=== PATIENT | male | born 1950 | race Caucasian/White ===

== ENCOUNTER 2017-09-30 02:40 | Emergency (ER) | payer MEDICARE, OTHER, SELFPAY ==
[2017-09-30 02:42] VITALS: BP 135/67; PULSE 80; RESP 18; TEMP 36.3; O2SAT 94; BMI 58.3
--- NOTE | 2017-09-30 03:15 | RAD_ITS ---
STUDY: X-RAY CHEST REASON FOR EXAM: Male, 67 years old. Cough. TECHNIQUE: Single AP portable view of the chest. COMPARISON: 08/25/2017. FINDINGS: There is a tracheostomy tube. The lungs are mildly underexpanded. There is no demonstrated pulmonary infiltrate. There is no demonstrated pleural abnormality. There is moderate cardiac enlargement. Normal mediastinum and [place]. There is prominence of the pulmonary hilar arteries and peripheral pulmonary arteries, consistent with congestive heart failure (CHF). Normal visualized aortic arch and descending thoracic aorta. Normal visualized thoracic spine. Normal visualized ribs, clavicles, and shoulders. There is no demonstrated abnormality of the visualized soft tissue structures of the upper abdomen. RAD/Chest 1 View IMPRESSION: Cardiomegaly with mild CHF. Tracheostomy tube. Electronically Signed: Tao Hurt MD at 4:00 EST , Service support ,
--- NOTE | 2017-09-30 03:17 | ED.VISSUMM ---
- ER Visit Summary Date of Service: 09/30/17 Chief Complaint: trach displaced History of Present Illness: The patient is a 67 M presenting from sn[facility] for trach problems. Patient states he had a coughing episode this evening and his trach was displaced. It did not completely come out but he feels that something is wrong and it is not in the right place. The snf staff tried to push it back in and they were unable. Per snf staff he has been playing with his trach. Patient denies this. He states he has had a cough productive of sputum. He had a chest x-ray performed today and was unable to receive the results. He denies fever, shortness of breath, chest pain. On August 22, 2017 patient had a emergent trach placed after airway team was called due respiratory failure secondary to intentional ativan overdose. Physical Examination: Vitals are stable. Patient is afebrile. Alert no acute distress. HEENT exam is unremarkable. Neck is supple. Trach displaced 4 cm Lungs are clear and equal bilaterally. Heart is regular rate and rhythm. Abdomen is soft nontender nondistended. Extremities are unremarkable. Skin is warm and dry. No focal neurologic deficit. Remainder of exam is unremarkable. Emergency Department Course and Treatment: Along with respiratory therapist I tried to advance his trach without success. Chest x-ray was obtained and shows no acute process, mild CHF. ENT was paged. Patient was observed for several hours awaiting callback. He had no desaturations. He has not required oxygen. He states he has been off oxygen for several days. He wears a CPAP at night for sleep apnea. Discussed with Dr. Barton who recommends removing the trach and placing an occlusive dressing. Patient tolerated this well. He will be discharged back to the snf. Disposition: Discharge home Impression: Tracheostomy tube displacement This note was generated with [employer] dictation software. It may contain incorrect words, spelling, and punctuation that were not noted in review of the chart prior to signing ED Disposition - Plan for ED Patient: Chief Complaint: Other, Pain/Inj Referrals: Jason Moffett DO [Primary Care Provider] -
--- NOTE | 2017-09-30 03:21 | ED.DCSUM_ITS ---
- ER Visit Summary Date of Service: 09/30/17 Chief Complaint: trach displaced History of Present Illness: The patient is a 67 M presenting from assisted for trach problems. Patient states he had a coughing episode this evening and his trach was displaced. It did not completely come out but he feels that something is wrong and it is not in the right place. The assisted staff tried to push it back in and they were unable. Per assisted staff he has been playing with his trach. Patient denies this. He states he has had a cough productive of sputum. He had a chest x-ray performed today and was unable to receive the results. He denies fever, shortness of breath, chest pain. On August 22, 2017 patient had a emergent trach placed after airway team was called due respiratory failure secondary to intentional ativan overdose. Physical Examination: Vitals are stable. Patient is afebrile. Alert no acute distress. HEENT exam is unremarkable. Neck is supple. Trach displaced 4 cm Lungs are clear and equal bilaterally. Heart is regular rate and rhythm. Abdomen is soft nontender nondistended. Extremities are unremarkable. Skin is warm and dry. No focal neurologic deficit. Remainder of exam is unremarkable. Emergency Department Course and Treatment: Along with respiratory therapist I tried to advance his trach without success. Chest x-ray was obtained and shows no acute process, mild CHF. ENT was paged. Patient was observed for several hours awaiting callback. He had no desaturations. He has not required oxygen. He states he has been off oxygen for several days. He wears a CPAP at night for sleep apnea. Discussed with Dr. Barton who recommends removing the trach and placing an occlusive dressing. Patient tolerated this well. He will be discharged back to the assisted. Disposition: Discharge home Impression: Tracheostomy tube displacement This note was generated with [employer] dictation software. It may contain incorrect words, spelling, and punctuation that were not noted in review of the chart prior to signing ED Disposition - Plan for ED Patient: Chief Complaint: Other, Pain/Inj Referrals: Jason Moffett DO [Primary Care Provider] -
[2017-09-30 06:54] VITALS: BP 163/63; PULSE 85; O2SAT 92
--- NOTE | 2017-09-30 09:16 | ED.DEP ---
ED Disposition - Plan for ED Patient: Chief Complaint: Other, Pain/Inj Instructions: Tracheostomy Care Referrals: Jason Moffett DO [Primary Care Provider] -
[2017-09-30 09:40] VITALS: BP 133/77; PULSE 89; RESP 26; O2SAT 94
[2017-09-30 11:19] VITALS: BP 142/78; PULSE 94; RESP 22; O2SAT 95
== END 2017-09-30 11:20 | disposition home or self-care (01) ==
PROVIDERS: Emergency Provider Emergency Medicine; Family Provider Student in an Organized Health Care Education/Training Program; PCP Student in an Organized Health Care Education/Training Program
DX: J95.03 Malfunction of tracheostomy stoma (principal); R05 Cough; I10 Essential (primary) hypertension; E78.00 Pure hypercholesterolemia, unspecified; G47.33 Obstructive sleep apnea (adult) (pediatric); F32.9 Major depressive disorder, single episode, unspecified; F41.9 Anxiety disorder, unspecified
CPT/HCPCS: 71045; 99283

== ENCOUNTER 2017-10-06 08:46 | Emergency (ER) | payer MEDICARE, OTHER, SELFPAY ==
[2017-10-06 08:47] VITALS: BP 150/80; PULSE 79; RESP 17; TEMP 36.8; O2SAT 97; BMI 56.1
--- NOTE | 2017-10-06 08:58 | CT_ITS ---
STUDY: CT ABDOMEN AND PELVIS WITHOUT CONTRAST REASON FOR EXAM: Male, 67 years old. Abdominal pain RADIATION DOSAGE (If Supplied By Facility): CTDIvol = ( 34.45 ) mGy, DLP = ( 2014.33 ) mGycm TECHNIQUE: Transaxial images were obtained from the dome of the diaphragm to the symphysis pubis without oral contrast, and without intravenous contrast. Sagittal and coronal images were reconstructed. Individualized dose optimization techniques were used for this CT. COMPARISON: None. FINDINGS: Limited by obesity. The visualized lung bases are unremarkable. Mild cardiomegaly. There is hepatomegaly with diffuse hepatic enlargement. Normal gallbladder and extrahepatic biliary system. Normal spleen. There is diffuse atrophy of the pancreas. Normal bilateral adrenal glands. Nonobstructing right lower pole nephrolith measuring 1.0 cm. Exophytic mildly hyperdense right renal cysts. Normal left kidney. There is a small hiatal hernia. The visualized portions of the small bowel are grossly within normal limits. The visualized portions of the colon are grossly within normal limits. There is slight dilation of the appendix with a distal appendicolith and some periappendiceal fat stranding. Acute appendicitis cannot be excluded. The appendix measures roughly 11 mm in diameter. Normal abdominal aorta. Normal inferior vena cava. Normal retroperitoneum. Butst catheter within the bladder. Normal abdominal wall. There are diffuse degenerative changes of the visualized lumbar spine. CT/Abdomen/Pelvis without Cont IMPRESSION: Questionable early appendicitis with slight dilation of the appendix and fluid filled appendix and some distal periappendiceal fat stranding. There is an appendicolith in the distal appendix. Nonobstructing right nephrolith. Electronically Signed: Babak Trejo DO at 10:30 EST Tel , Service support ,
--- NOTE | 2017-10-06 11:03 | ED.VISSUMM ---
- ER Visit Summary Date of Service: 10/06/17 Chief Complaint: Abdominal pain History of Present Illness: The patient is a 67 M presenting with 3 days of diffuse abdominal discomfort as well as nausea and vomiting. He was evaluated at [facility] early this morning and had a moderate leukocytosis but his other laboratory studies were within normal limits. He was unable to fit in the CT scanner and was transferred here for a CT scan. His pain has improved slightly since this morning after belching during his abdominal plain films at the outside hospital. Physical Examination: He has normal vital signs. He is not in distress. He has diffuse abdominal tenderness but no rebound or guarding. Overlying skin looks normal. Test Results: CT scan reveals acute appendicitis Emergency Department Course and Treatment: He was given IV Zosyn. I spoke with Dr. Anjali Hernandez here who also discussed the case with the cdl driver. Due to the patient's obesity, Dr. Hernandez felt it would be safer to transfer him to a larger center. I spoke his and she requested [facility]. Treatment Plan: IV antibiotics and transfer to [facility] Disposition: transfer Impression: Initial encounter for acute appendicitis This note was generated with [employer] dictation software. It may contain incorrect words, spelling, and punctuation that were not noted in review of the chart prior to signing ED Disposition - Plan for ED Patient: Chief Complaint: Abd Pain Referrals: Jason Moffett DO [Primary Care Provider] -
--- NOTE | 2017-10-06 11:15 | ED.DCSUM_ITS ---
- ER Visit Summary Date of Service: 10/06/17 Chief Complaint: Abdominal pain History of Present Illness: The patient is a 67 M presenting with 3 days of diffuse abdominal discomfort as well as nausea and vomiting. He was evaluated at [facility] early this morning and had a moderate leukocytosis but his other laboratory studies were within normal limits. He was unable to fit in the CT scanner and was transferred here for a CT scan. His pain has improved slightly since this morning after belching during his abdominal plain films at the outside hospital. Physical Examination: He has normal vital signs. He is not in distress. He has diffuse abdominal tenderness but no rebound or guarding. Overlying skin looks normal. Test Results: CT scan reveals acute appendicitis Emergency Department Course and Treatment: He was given IV Zosyn. I spoke with Dr. Anjali Hernandez here who also discussed the case with the biofuels operations manager. Due to the patient's obesity, Dr. Hernandez felt it would be safer to transfer him to a larger center. I spoke his and she requested [facility]. Treatment Plan: IV antibiotics and transfer to [facility] Disposition: transfer Impression: Initial encounter for acute appendicitis This note was generated with [employer] dictation software. It may contain incorrect words, spelling, and punctuation that were not noted in review of the chart prior to signing ED Disposition - Plan for ED Patient: Chief Complaint: Abd Pain Referrals: Jason Moffett DO [Primary Care Provider] -
--- NOTE | 2017-10-06 11:26 | NURSING ---
FAXED FACESHEET TO [facility] DR IS DR VALERIO, SURGEON
[2017-10-06] MEDS: Piperacil/Tazobactam 3.375 GM/50 ML ML IV (11:30)
[2017-10-06 12:41] VITALS: BP 144/68; PULSE 80; RESP 20; O2SAT 94
--- NOTE | 2017-10-06 13:05 | NURSING ---
Gave update to CARYN Vega from [facility] where pt is currently residing. Facility notified that pt is being transferred to [facility].
[2017-10-06 13:20] VITALS: BP 140/66; PULSE 80; RESP 20; TEMP 36.7; O2SAT 94
== END 2017-10-06 13:28 | disposition short-term general hospital (02) ==
PROVIDERS: Emergency Provider Emergency Medicine; Family Provider Student in an Organized Health Care Education/Training Program; PCP Student in an Organized Health Care Education/Training Program
DX: K35.80 Unspecified acute appendicitis (principal); K21.9 Gastro-esophageal reflux disease without esophagitis; E11.9 Type 2 diabetes mellitus without complications; I10 Essential (primary) hypertension; E78.00 Pure hypercholesterolemia, unspecified; G47.33 Obstructive sleep apnea (adult) (pediatric); F41.9 Anxiety disorder, unspecified
CPT/HCPCS: 74176; 87804; 99285; J7050

== ENCOUNTER → 2018-04-29 12:51 | Outpatient (CLI) | payer MEDICARE, OTHER, SELFPAY | PROVIDERS: Family Provider Student in an Organized Health Care Education/Training Program; PCP Student in an Organized Health Care Education/Training Program; Visit Provider Podiatrist Foot & Ankle Surgery | DX: M86.071 Acute hematogenous osteomyelitis, right ankle and foot (principal) | CPT/HCPCS: 73718 ==

== ENCOUNTER 2018-06-22 09:50 | Day surgery (SDC) | payer MEDICARE, OTHER, SELFPAY ==
[2018-06-22] VITALS (7 sets, daily range): BP systolic 132–173; BP diastolic 68–83; PULSE 48–65; RESP 16–18; TEMP 36.1–36.8; O2SAT 95–98; BMI 56.5
--- NOTE | 2018-06-22 | COLBX_PTH ---
PATIENT: Ct SILVEIRA LOC: EN U#:[id number] AGE/SX: 67/M ROOM: RE06/22/[address]: Dr. Roberto Negron MD : 1950 BED: DIS: 06/22/2018 SPEC #: [id number] RECD: 06/22/18 13:19 STATUS: IESHA REChristi #: [id number] COLLETTE: 06/22/18 00:[address]: Roberto Negron DEPT: SURGICAL PATHOLOGY RECD BY: Alf Yip ENTERED: 06/22/18 13:19 SP TYPE: COLON BX OTHR DR: Dr. Jason Moffett DO Tissues: COLON BIOPSY Procedures: Surgery Specimen Level IV HEADER OPERATION: Colonoscopy (MAC) PRE-OP DIAGNOSIS: Family history colon CA; high-risk screening TISSUE SUBMITTED: Polyp 20 cm colon MICROSCOPIC DIAGNOSIS Polyp 20 cm colon, biopsy: Fragments of tubular adenoma. Fragments of fecal material. SJ:olvin 06/23/18 MICROSCOPIC DESCRIPTION Slides are reviewed. GROSS DESCRIPTION Received in fixative is one container labeled with the patient's name and designated polyp 20 cm colon. The specimen consists of a piece of berger-pink polyp measuring 0.7 x 0.5 x 0.3 cm. Also present in the container are multiple fragments of berger soft tissue mixed with fecal material measuring in aggregate 2.5 x 0.3 x 0.1 cm. The entire specimen is submitted in one cassette. / SJ:olvin 06/22/18 TC:1 [facility]: [id number]
[2018-06-22 10:35] LABS: Bedside Glucose 226 mg/dL (70-110)
--- NOTE | 2018-06-22 11:26 | HP.PCM_ITS ---
History and Physical Date of Admission: 06/22/18 HISTORY AND PHYSICAL ? Espinoza Chaney 1950 ? REFERRING PHYSICIAN: ??Jason Moffett, DO ? CHIEF COMPLAINT: ??Consult (Consult Colonoscopy) ? HPI: The patient is a 67 year old male referred for endoscopy. ?Espionza notes a family history of colon cancer in his father. ?Patient no personal history of colon complaints. ?He denies any change in bowel habits, weight changes, blood in stools, black tarry stools or abdominal pain. ?Last colonoscopy was done by Dr. De in 2011 with diverticulosis and hemorrhoids noted at that time, 5- year follow-up recommended. ?The patient ?notes no history of upper GI complaints. ? The patient is being seen by me today at the request of Dr. Moffett?for my opinion and advice regarding screening colonoscopy. ?Past medical history significant for CVA in August 2017. ?Patient had attempted suicide with Ativan at home, was transported by EMS to hospital. ?Had problems with securing an airway-ET tube broke twice while attempting intubation and patient underwent emergency tracheostomy, had several minutes of decreased oxygenation. ?The patient was admitted and was on ventilator for a month before being extubated. ?Patient notes he is feeling much better at this time. ?Has been working hard doing his therapy and slowly regaining strength in his limbs. ?He currently uses a motorized wheelchair to help him get around but states he is able to ambulate short distances, including from his bedroom to and from the bathroom at home without any issue. ? ? ? PAST?MEDICAL?HISTORY PAST MEDICAL HISTORY Diagnosis Date ? Anxiety state, unspecified ? ? Benign neoplasm of colon ? ? Cardiomegaly ? ? Carpal tunnel syndrome ? ? Chronic pain ? ? lumbar ? Chronic prostatitis 01/10/2008 ? Congestive heart failure, unspecified ? ? Coronary atherosclerosis of unspecified type of vessel, [place] or graft ? ? CVA (cerebral vascular accident) ([facility]) 08/22/2017 ? Depression ? ? Dysmetabolic syndrome X ? ? Edema ? ? H/O pulmonary hypertension ? ? Hemorrhage of gastrointestinal tract, unspecified ? ? Herpes zoster ? History of prostatitis 10/31/2013 ? Hives ? ? chronic ? Internal hemorrhoids without mention of complication ? ? Lumbago 04/24/2009 ? Morbid obesity (HCC) 05-23-09 ? stated BMI 61.6 ?Ht: ?69 ?Wt: ?418 lbs ? Osteoarthritis of hip 10/22/2004 ? Right hip pain ? Other and unspecified hyperlipidemia ? ? Other symptoms involving digestive system(787.99) ? ? change in bowel habits ? Positional vertigo ? ? Suicide attempt by drug ingestion (HCC) 09/01/2017 ? intentional overdose on Ativan ? Surgical Scar condition and fibrosis of skin 06/08/2011 ? Type II or unspecified type diabetes mellitus without mention of complication, not stated as uncontrolled ? ? borderline ? Unspecified asthma(493.90) ? ? Unspecified essential hypertension ? ? Unspecified sleep apnea ? ? ? PAST?SURGICAL?HISTORY PAST SURGICAL HISTORY Procedure Laterality Date ? COLONOSCOP W/ OR W/O BRSH SPEC ? 02/09/01 ? Colonoscopy ? COLONOSCOP W/ OR W/O BRSH SPEC ? 02/15/06 ? Colonoscopy ? COLONOSCOP W/ OR W/O BRSH SPEC ? 05/12/2012 ? Colonoscopy ? LEFT HEART CATH,PERCUTANEOUS ? ? Cardiac cath, L heart ? PAST SURGICAL HISTORY OF ? ? ? 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 PILONIDAL CYST/SINUS EXCISION ? ? ? TRACHEOSTOMY, <2 Y/O ? 08/2017 ? ? CURRENT?MEDICATIONS ? Current Outpatient Prescriptions: LORazepam (ATIVAN) 1 mg tablet Take 1 tablet by mouth twice daily for 30 days. valACYclovir (VALTREX) 1 gram tab Take 1 tablet by mouth three times daily. As needed furosemide (LASIX) 40 mg tablet Take 40 mg by mouth once daily. collagenase (SANTYL) ointment Apply 1 application to affected area once daily. triamcinolone acetonide (KENALOG) 0.1 % cream Apply 1 application to affected area three times daily as needed. Hand eczema, ?Apply sparingly to area for rash/itching. furosemide (LASIX) 20 mg tablet TAKE 1 TABLET ONCE DAILY metFORMIN ER (GLUCOPHAGE XR) 500 mg 24 hr tablet Take 1 tablet by mouth twice daily with meals. (Patient taking differently: Take 500 mg by mouth. 2 tablets Two times daily ) CPAP Initiate CPAP @ 19 cm of water with humidification. Mask (per patient preference ) optional chin strap (if indicated) , filters, tubing, humidifier and lifetime supplies. Dx: JESSICA 327.23 FLUoxetine (PROZAC) 10 mg capsule Take 1 capsule by mouth once daily. FLUoxetine (PROZAC) 20 mg capsule Take 1 capsule by mouth once daily. glimepiride (AMARYL) 4 mg tablet Take 1 tablet by mouth twice daily with meals. losartan (COZAAR) 100 mg tablet TAKE ONE TABLET BY MOUTH EVERY DAY naproxen (NAPROSYN) 500 mg tablet Take 1 tablet by mouth at bedtime as needed. metoprolol succinate ER (TOPROL XL) 100 mg Tb24 Take 1 tablet by mouth once daily. triamcinolone acetonide (KENALOG) 0.1 % cream Apply 1 application to affected area three times daily. Apply sparingly to area for rash/itching. mupirocin (BACTROBAN) 2 % ointment Apply 1 application to affected area twice daily. gabapentin (NEURONTIN) 300 mg capsule TAKE ONE CAPSULE IN THE DAY TIME AND TAKE TWO CAPSULES AT BEDTIME insulin needles, DISPOSABLE, (PEN NEEDLE) 31 gauge x 5/16 ndle Use one needle per dose. 2x per day. Insulin [place], Disposable, (PEN NEEDLES) 31 gauge x 1/4 ndle One needle per dose; 1 per day ?Dx: E11.49 ?E11.65 COMPOUNDED PRESCRIPTION Mask assembly, ?Head gear and ?tubing for CPAP machineDX: G47.30 JESSICA on CPAP aspirin, enteric coated (ECOTRIN LOW STRENGTH) 81 mg EC tablet Take 1 tablet by mouth once daily. COMPOUNDED PRESCRIPTION Stair lift Dx: 278.01 724.00 ?729.2 COMPOUNDED PRESCRIPTION Motorized Scooter -[employer]over[employer] OTC PRODUCT Circuleg - 1 tablet twice daily. cetirizine 10 mg tablet Takes 2 tablets twice daily GLUCOSAM SUL NA/CHONDR NEGRETE A NA (GLUCOSAMINE & CHONDROIT SUL.NA ORAL) Take ?by mouth. FOLIC ACID/MV,FE,OTHER MIN (CENTRUM ORAL) Take ?by mouth. furosemide (LASIX) 40 mg tablet Take 1 tablet by mouth once daily. ? No current facility-administered medications for this visit. ? ALLERGIES: Antidepressants [Tricyclic Compounds]; Ciprofloxacin; Isordil [Isosorbide Dinitrate]; Morphine; Prednisone ? PERSONAL HISTORY: SOCIAL?HISTORY Social History ??Marital status: ?Spouse name: Chely ?Years of education: ?Number of children: 2 ? Occupational History Occupation ?Employer ?Comment ?[employer] ? Social History Main Topics ??Smoking status: Former Smoker ?Packs/day: 1.00 ?Years: 10.00 ?Types: Cigarettes ?Quit date: 10/06/1976 ??Smokeless tobacco: Never Used ?Comment: quit 1976 ??Alcohol use: No ?Drug use: No ? Social History Narrative ??, ??son with renal CA, on hospice ? ? FAMILY HISTORY: FAMILY?HISTORY FAMILY HISTORY Problem Relation Age of Onset ? Colon Cancer Father ? at age 86 - from old age ? Hypertension Mother ? ? None Sister ? ? None Brother ? ? None Brother ? ? REVIEW OF SYMPTOMS: ??The review of systems data was entered by the nurse and reviewed by me ? Nursing Notes: Sumeet Aguilar LPN ?04/20/2018 ?1:24 PM ?Signed REVIEW OF SYSTEMS: ?General:???The patient notes fatigue, denies weight loss, denies weight gain, denies feeling hot, and denies feelings of cold. ?Eyes: ?The patient denies glaucoma, denies eye injury/surgery, wears glasses or contacts. ?Ear/Nose/Throat: ?The patient NOTES allergies, denies hayfever, denies ear infections, and denies bloody noses. ?Cardiovascular: ?The patient denies chest pain, NOTES heart disease, NOTES high blood pressure,denies cardiac stent, denies prior heart attack, denies irregular heart beat, denies high cholesterol, ?denies poor circulation, denies heart failure, other cardiac issues, denies claudication, denies cold feet, denies peripheral arterial stent. ?Respiratory: ?The patient denies tuberculosis, denies pneumonia, denies frequent cough, denies pulmonary embolism, NOTES shortness of breath, and denies coughing up blood. ?Gastrointestinal: ?The patient denies difficulty swallowing, denies acid reflux, denies ulcers, denies vomiting, denies jaundice/hepatitis, denies gallbladder problems, denies black or tarry stools, NOTES hemorrhoids, NOTES bleeding from rectum, denies diverticulitis, NOTES constipation, denies diarrhea, denies loss of stool control, and denies hernias. ?Kidney/Bladder: ?The patient NOTES kidney stones, denies urine infections, and denies bloody urine. NOTES kidney failure ?Skin: ?The patient denies a history of skin cancer, denies bleeding/changing moles, and denies a history of skin rash. ?Neurologic: ?The patient denies a history of epilepsy/convulsions, denies headaches, denies head/spinal injuries, and NOTES stroke/TIA. ?Psychiatric: ?The patient denies psychiatric medications, NOTES depression, and denies voices, denies substance abuse. ?Endocrine: ?The patient denies thyroid disorders, NOTES diabetes, and denies hormonal problems. ?Hematologic: ?The patient denies a history of bruising, denies bleeding, and denies anemia, denies blood clots. ?Infections: ?The patient denies a history of measles and mumps, denies rheumatic fever, and denies sexually transmitted diseases. ?Musculoskeletal: ?The patient denies back pain/injury, denies back problems, denies sciatica, NOTES knee/foot trouble, NOTES arthritis, or denies gout. ? ? When was patient's last Mammogram screening? N/A ? ?Last Colonoscopy: ?2011 ? Sumeet Aguilar LPN? I have confirmed and edited as necessary, the PFSH and ROS obtained by others. ? ? PHYSICAL EXAMINATION: ? General: ?The patient is a very pleasant?67 year old male, well nourished, well hydrated in no acute distress. ?The patient is oriented to time, place, and person. ? VITALS: Blood pressure 148/62, pulse (!) 52, weight (!) 179.6 kg (396 lb).?Body mass index is 56.82 kg/m?.? ? HEENT: ?Normal cephalic, ataumatic, pupils are equally round, sclera are anicteric, mucous membranes are moist, oropharynx is clear. ?Neck has no masses, asymmetry or lymphadenopathy. ? Respiratory: ?Clear to auscultation and percussion. ?Normal respiratory excursion and pattern. ? Cardiac: ?Examination is regular rate and rhythm. ? Abdominal exam: ?Soft, nontender, ?with no palpable masses. ?No hepatosplenomegaly. ?No palpable hernias. ? Rectal exam: exam deferred ? Extremities: ?no clubbing, cyanosis or edema. ?No adenopathy. ? Other: ? LABORATORY VALUES: As Noted ? RADIOLOGIC STUDIES: ?As Noted ? Assessment ? IMPRESSION: encounter for screening colonoscopy, family history of colon cancer, multiple medical comorbidities-plan for Monitored Anesthetic Care ? PLAN: ?I have reviewed my findings with Dr. Negron. ?We will plan for screening colonoscopy with MAC.??We discussed the risks and benefits of the planned endoscopy. ?I have informed the patient that complications can occur including failure to complete the endoscopy and perforation. ?The patient had the opportunity to ask questions concerning the planned endoscopy. ?My staff has also explained the procedure to the patient in understandable terms and has given the patient printed material concerning the procedure. ?The patient freely consents to surgery. ? I plan to use golytely bowel preparation for endoscopy-has Rx from PCP. ?Patient is confident he can tolerate the bowel prep and states he can ambulate to and from bathroom easily at home. ?Reviewed importance of good hydration during bowel preparation ? The patient has medical comorbidities for which I plan to perform the procedure under monitored anesthetic care.??Patient will need PAT prior to procedure ? Patient to REMAIN ON all routine medications including his aspirin ? Patient verbalized understanding of all above and agreed with the plan ? Diagnoses: (Z80.0) Family history of colon cancer in father ?(primary encounter diagnosis) (Z12.11) Encounter for screening for malignant neoplasm of colon ? My findings have been communicated to Dr. Moffett?via shared medical record. ?This note will be forwarded to Dr. Jason Moffett, DO. ?? Return to Clinic: The patient is instructed to follow-up with me 1 week post operatively. ? Vangie Lin PA-C
--- NOTE | 2018-06-22 11:58 | OP.ENDO_ITS ---
Patient Name: Espinoza Chaney Procedure Date: 06/22/2018 11:27 AM Date of : 1950 Age: 67 Procedure: Colonoscopy Indications: Screening patient at increased risk: Family history of colorectal cancer in multiple 1st-degree relatives Providers: Roberto Negron MD Medicines: Monitored Anesthesia Care Patient Profile: This is a 67 year old male. Refer to note in patient chart for documentation of history and physical. Last Colonoscopy: 5 years ago. Complications: No immediate complications. Procedure: Pre-Anesthesia Assessment: - Prior to the procedure, a History and Physical was performed, and patient medications and allergies were reviewed. The patient is competent. The risks and benefits of the procedure and the sedation options and risks were discussed with the patient. All questions were answered and informed consent was obtained. Patient identification and proposed procedure were verified by the physician, the nurse and the anesthesiologist in the procedure room. Mental Status Examination: alert and oriented. Airway Examination: normal oropharyngeal airway and neck mobility. Respiratory Examination: clear to auscultation. CV Examination: normal. Prophylactic Antibiotics: The patient does not require prophylactic antibiotics. Prior Anticoagulants: The patient has taken no previous anticoagulant or antiplatelet agents. ASA Grade Assessment: III - A patient with severe systemic disease. After reviewing the risks and benefits, the patient was deemed in satisfactory condition to undergo the procedure. The anesthesia plan was to use monitored anesthesia care (MAC). Immediately prior to administration of medications, the patient was re-assessed for adequacy to receive sedatives. The heart rate, respiratory rate, oxygen saturations, blood pressure, adequacy of pulmonary ventilation, and response to care were monitored throughout the procedure. The physical status of the patient was re-assessed after the procedure. After I obtained informed consent, the scope was passed under direct vision. Throughout the procedure, the patient's blood pressure, pulse, and oxygen saturations were monitored continuously. The colonoscope was introduced through the anus and advanced to the cecum, identified by the appendiceal orifice, ileocecal valve and palpation. The colonoscopy was performed without difficulty. The patient tolerated the procedure well. The quality of the bowel preparation was good. Scope In: 11:35:25 AM Scope Withdrawal Time 0 hours 11 minutes 4 seconds Scope Out: 11:52:16 AM Total Procedure Duration Time 0 hours 16 minutes 51 seconds Findings: The perianal and digital rectal examinations were normal. A 8 mm polyp was found in the recto-sigmoid colon. The polyp was sessile. The polyp was removed with a hot snare. Resection and retrieval were complete. The exam was otherwise without abnormality. The retroflexed view of the distal rectum and anal verge was normal and showed no anal or rectal abnormalities. Impression: - One 8 mm polyp at the recto-sigmoid colon, removed with a hot snare. Resected and retrieved. - The examination was otherwise normal. - The distal rectum and anal verge are normal on retroflexion view. Recommendation: - Discharge patient to home. - Resume previous diet. - Continue present medications. - Await pathology results. - Return to physician hair assistant in 1 week. - Repeat colonoscopy for surveillance based on pathology results. Procedure Code(s): --- Professional --- 56487, Colonoscopy, flexible; with removal of tumor(s), polyp(s), or other lesion(s) by snare technique CPT copyright 2017 [employer]. All rights reserved. The codes documented in this report are preliminary and upon manager bilingual review may be revised to meet current compliance requirements. Roberto Negron MD 06/22/2018 11:57:47 AM This report has been signed electronically. Number of Addenda: 0 Note Initiated On: 06/22/2018 11:27 AM
== END 2018-06-22 12:39 | disposition home or self-care (01) ==
LOC: EN 09:52 → AC 09:58
PROVIDERS: Family Provider Student in an Organized Health Care Education/Training Program; PCP Student in an Organized Health Care Education/Training Program; Referring Provider Surgery; Visit Provider Surgery
PROC: 0DJD8ZZ Inspection of Lower Intestinal Tract, Via Natural or Artificial Opening Endoscopic (ICD-10-PCS; CPT 45378; principal; 2018-06-22 12:55)
DX: Z12.11 Encounter for screening for malignant neoplasm of colon (principal); D12.7 Benign neoplasm of rectosigmoid junction; Z80.0 Family history of malignant neoplasm of digestive organs; I25.10 Atherosclerotic heart disease of native coronary artery without angina pectoris; E11.22 Type 2 diabetes mellitus with diabetic chronic kidney disease; I13.0 Hypertensive heart and chronic kidney disease with heart failure and stage 1 through stage 4 chronic kidney disease, or unspecified chronic kidney disease; N18.3 Chronic kidney disease, stage 3 (moderate); I50.9 Heart failure, unspecified; E88.81 Metabolic syndrome and other insulin resistance; G89.29 Other chronic pain; F41.9 Anxiety disorder, unspecified; F32.9 Major depressive disorder, single episode, unspecified; I27.20 Pulmonary hypertension, unspecified; E66.01 Morbid (severe) obesity due to excess calories; Z68.43 Body mass index [BMI] 50.0-59.9, adult; E78.00 Pure hypercholesterolemia, unspecified; J44.9 Chronic obstructive pulmonary disease, unspecified; G47.30 Sleep apnea, unspecified; M16.10 Unilateral primary osteoarthritis, unspecified hip; G25.81 Restless legs syndrome; K44.9 Diaphragmatic hernia without obstruction or gangrene; Z87.19 Personal history of other diseases of the digestive system; Z86.73 Personal history of transient ischemic attack (TIA), and cerebral infarction without residual deficits; Z87.442 Personal history of urinary calculi; Z91.5 Personal history of self-harm; Z85.828 Personal history of other malignant neoplasm of skin; Z79.84 Long term (current) use of oral hypoglycemic drugs; Z79.4 Long term (current) use of insulin; Z79.82 Long term (current) use of aspirin; Z79.899 Other long term (current) drug therapy; Z87.891 Personal history of nicotine dependence
CPT/HCPCS: 45385; 82962; 88305; J7120

== ENCOUNTER 2022-05-14 02:21 | Emergency (ER) | payer MEDICARE, OTHER, SELFPAY ==
[2022-05-14 02:23] VITALS: BP 181/91; PULSE 73; RESP 20; TEMP 36.4; O2SAT 97; BMI 65.9
[2022-05-14 02:27] VITALS: O2SAT 97
--- NOTE | 2022-05-14 02:46 | RAD_ITS ---
STUDY: X-RAY - RIGHT FOOT CLINICAL: Male, 71 years old. ? Osteomyelitis TECHNIQUE: 2 view(s) of the foot. COMPARISON: None. FINDINGS: There is demineralization of the rear and midfoot bones. There is a visualized Achilles and plantar spur. Normal visualized subtalar, talonavicular, calcaneocuboid, tarsal and tarsometatarsal articulations. There is demineralization of the metatarsi. Normal metatarsophalangeal joint of the great toe. Normal tibial and fibular sesamoid bones. There is degenerative arthrosis of the interphalangeal joint of the great toe. Normal phalanges of the great toe. Normal second through fifth metatarsophalangeal joints. At the base of the fourth proximal phalanx is a suggestion of age indeterminant fracture. The bones are osteopenic especially at the level of the distal metatarsal at the level of the second and third. At the level of the proximal fifth phalanx is a suggestion of possible exostosis and/or possible accessory ossicle versus prior injury. There is visualized soft tissue edema about the foot especially on the dorsal aspect of the foot. The bones are osteopenic. RAD/Foot 2 Views IMPRESSION: Soft tissue edema bony osteopenia age-indeterminate fracture of the proximal fourth phalanx. Soft tissue edema Achilles and plantar spur. No visualized foreign body. No visualized obvious bony erosion. Electronically Signed: Chely Hester MD at 3:57 EDT Reading Location ID and State: [facility] / [place] Tel , Service support ,
--- NOTE | 2022-05-14 02:46 | RAD_ITS ---
STUDY: X-RAY CHEST REASON FOR EXAM: Male, 71 years old. Cough TECHNIQUE: Single AP portable view of the chest. COMPARISON: September 30, 2017 chest x-ray FINDINGS: There is improved inspiration since prior study. The interstitial markings are minimally prominent. The lungs are clear and expanded. There is no demonstrated pleural abnormality. Normal size heart. The prominent appearance of the right-sided paramediastinal soft tissues which may represent benign mediastinal fat versus vascular ectasia. Normal visualized pulmonary arteries. There is atherosclerotic calcification of the aortic arch with tortuosity. There are diffuse degenerative changes of the visualized thoracic spine. Normal visualized ribs, clavicles, and shoulders. There is no demonstrated abnormality of the visualized soft tissue structures of the upper abdomen. RAD/Chest 1 View (Portable) IMPRESSION: Left greater than right lower lobe atelectasis. Prominence of the right-sided paramediastinal soft tissue which may represent summation of shadows with mediastinal fat, versus vascular ectasia versus enlargement of the thyroid or less likely lymphadenopathy. Improved inspiration since prior study. Electronically Signed: Chely Hester MD at 4:08 EDT ,
[2022-05-14 02:49] VITALS: PULSE 80; RESP 18; RESP 20; O2SAT 96
[2022-05-14] MEDS: Ipratropium/Albuterol Sulfate 3 ML AMPUL.NEB INHALATION (02:49)
[2022-05-14 03:12] LABS: Absolute Neutrophil Count 5.2 X10^3/uL (2.0-7.7); Basophil# 0.03 X10^3/uL; Basophil% 0.4 % (0-1); Eosinophil# 0.26 X10^3/uL; Eosinophils% 3.2 % (0-5); Hematocrit 40.5 % (40-54); Lymphocyte % 24.5 % (19-41); Mean Corp Hgb Conc 32.1 g/dL (32-36); Mean Corpuscular Hgb 30.7 pg (27.0-32.0); Mean Corpuscular Volume 95.7 fL (80-94); Mean Platelet Vol. 9.9 fl (6.2-12.0); Monocyte# 0.64 X10^3/uL; Monocyte% 7.8 % (0-10); NRBC Flagged by Analyzer 0 % (0-5); Neutrophil % 63.6 % (47-70); Platelet Count 252 K/mm3 (150-450); RBC Distribution Width CV 14.2 % (11.6-14.6); RBC Distribution Width SD 49.7 fl (35.1-43.9); Red Blood Count 4.23 M/mm3 (4.6-6.2); White Blood Count 8.2 K/mm3 (4.4-11.0)
[2022-05-14 03:13] VITALS: O2SAT 98
[2022-05-14 03:28] LABS: Anion Gap 5 (5-15); BUN 26 mg/dL (7-18); BUN/Creat Ratio 16.1 RATIO (10-20); Calcium,Total 9.6 mg/dL (8.5-10.1); Chloride 106 mmol/L (98-107); Creatinine, Serum 1.61 mg/dL (0.70-1.30); EST Glomerular Filtration Rate 45 mL/min (>60); Est Glom Filt Rate - Afr Amer 55 mL/min (>60); Estimated Creatinine Clearance 43.45 ml/min; Glucose 223 mg/dL (74-106); Magnesium 2.2 mg/dL (1.6-2.6); Sodium Level 141 mmol/L (136-145)
[2022-05-14 03:30] LABS: BNP,B-Type NATRIURETIC PEPTIDE 30.7 pg/mL (0-100)
--- NOTE | 2022-05-14 04:22 | EDS_ITS ---
HPI History of Present Illness Chief Complaint: Shortness of Breath Narrative Narrative: Patient is a 71-year-old male with past medical history of hypertension hyperlipidemia morbid obesity and diabetes. He states that earlier today there was a crop plane that was spraying chemicals. He states that he believes he was exposed as he was outside on the porch at the time. He states as the night is gone by he has had increased cough and shortness of breath. He also reports that he has had a wound on his right foot for about 5 weeks that he has been taking care of. He does not feel there is obvious infection but as he is presenting for shortness of breath sensation wishes to have this evaluated [facility] Medical History (Updated 05/14/22 @ 05:[address] Jake Larose, DO) Asthma COPD (chronic obstructive pulmonary disease) CPAP (continuous positive airway pressure) dependence Depression Diabetes Former smoker GERD (gastroesophageal reflux disease) Kidney disease Osteoporosis Skin cancer Sleep apnea Stroke/cerebrovascular accident Home Medications acetaminophen 325 mg tablet 650 mg PO Q6H PRN PAIN/FEVER 09/30/17 [History Last Taken Unknown] furosemide 20 mg tablet 40 mg PO DAILY 09/30/17 [History Last Taken Unknown] lorazepam 1 mg tablet 1 mg PO BID 09/30/17 [History Last Taken Unknown] losartan 50 mg tablet 150 mg PO DAILY 09/30/17 [History Last Taken 06/22/18 08:30] metoprolol tartrate 25 mg tablet 100 mg PO DAILY 09/30/17 [History Last Taken 06/22/18 08:30] aspirin 81 mg tablet,delayed release 162 mg PO DAILY@0800 06/20/18 [History Last Taken Unknown] cetirizine 10 mg capsule (Zyrtec) 20 mg PO DAILY 06/20/18 [History Last Taken Unknown] glimepiride 4 mg tablet 4 mg PO BID 06/20/18 [History Last Taken Unknown] metformin 500 mg tablet,extended release 24 hr 1,000 mg PO BID 06/20/18 [History Last Taken Unknown] metoprolol tartrate 25 mg tablet 50 mg PO QHS 06/20/18 [History Last Taken Unknown] naproxen 500 mg tablet 500 mg PO QHS 06/20/18 [History Last Taken Unknown] pumpkin seed extract-soy germ 300 mg capsule (Azo Bladder Control) 600 mg PO DAILY 06/20/18 [History Last Taken Unknown] albuterol sulfate 90 mcg/actuation aerosol inhaler (Ventolin HFA) 2 puff inhalation Q4H PRN PRN Wheezing #1 device 05/14/22 [Rx Last Taken Unknown] atorvastatin 40 mg tablet (Lipitor) 40 mg PO DAILY 05/14/22 [History Last Taken Unknown] dulaglutide 4.5 mg/0.5 mL subcutaneous pen injector (Trulicity) 4.5 mg subcut QWEEK 05/14/22 [History Last Taken Unknown] epinastine 0.05 % eye drops 1 drp EACH EYE BID PRN allergic symptoms #5 mL 04/27 [Rx Last Taken Unknown] gabapentin 300 mg tablet 300 mg PO DAILY 05/14/22 [History Last Taken Unknown] gabapentin 300 mg tablet 900 mg PO QHS 05/14/22 [History Last Taken Unknown] insulin aspart U-100 100 unit/mL (3 mL) subcutaneous pen (Novolog Flexpen U-100 Insulin aspart) 30 unit subcut TID 05/14/22 [History Last Taken Unknown] insulin degludec 200 unit/mL (3 mL) subcutaneous pen (Tresiba FlexTouch U-200 insulin) 130 unit subcut QHS 05/14/22 [History Last Taken Unknown] pantoprazole 20 mg tablet,delayed release (Protonix) 20 mg PO DAILY 05/14/22 [History Last Taken Unknown] Allergy/AdvReac Type Severity Reaction Status Date / Time isosorbide dinitrate Allergy Other Verified 06/20/18 15:33 [From Isordil] prednisone Allergy Swelling Verified 06/20/18 15:33 morphine AdvReac Other Verified 06/20/18 15:33 Social History Smoking Status: Former smoker ROS ROS ED Constitutional Constitutional ED: Denies chills or fever(s) Eyes Eyes: Reports other Details: Positive eye irritation/itching ENT ENT ED: Denies sore throat Cardiovascular Cardiovascular: Denies chest pain Respiratory/Chest Respiratory/Chest: Reports cough and dyspnea Gastrointestinal Gastrointestinal: Denies abdominal pain, diarrhea, nausea or vomiting Genitourinary Genitourinary ED: Denies dysuria Musculoskeletal Musculoskeletal: Denies myalgias Integumentary Reports other Details: Positive right foot wound ; Denies rash Neurologic Neurologic: Denies headache(s) EXAM Physical Exam Const Vital Signs: 05/14/22 02:23 05/14/22 02:27 05/14/22 03:13 Temperature 97.6 F L Temperature Source Temporal Pulse Rate 73 Respiratory Rate 20 H Respiratory Effort Short of Breath Respiratory Depth Respiratory Pattern Tachypnea Blood Pressure 181/91 H Blood Pressure Mean 121 Pulse Ox 97 98 Oxygen Delivery Method Room Air Room Air 05/14/22 02:49 05/14/22 02:49 05/14/22 04:37 Temperature Temperature Source Pulse Rate 80 77 Respiratory Rate 18 20 H 20 H Respiratory Effort Normal Respiratory Depth Normal Respiratory Pattern Normal Normal Blood Pressure 168/79 H Blood Pressure Mean Pulse Ox 96 97 Oxygen Delivery Method Room Air Positive well nourished, well developed and obese General Appearance ED: well developed Nutritional Appearance: obese HEENT Reports moist mucous membranes HEENT Narrative: No tongue or lip swelling no oral lesions no airway edema or compromise Eyes PERRL and EOMs intact bilaterally Eyes Narrative: Increased tearing with mild scleral injection from bilateral eyes Neck supple and no JVD Chest Wall palpation of chest normal Resp normal respiratory effort Resp Narrative: Breath sounds are diminished throughout with faint rhonchi in bilateral bases without nasal flaring retractions tachypnea or accessory muscle use Cardio regular rate and regular rhythm Rate: other Other Details: Radial pulses are plus 2 out of 4 bilaterally are equal and symmetric GI normal to inspection, nondistended, normoactive bowel sounds, non-tender and non-distended GI Narrative: No voluntary guarding or rigidity. No pulsatile mass or fluid wave Auscultation: normoactive bowel sounds Palpation: soft Extremity Extremity Narrative: Patient has chronic edema to the bilateral lower legs right greater than left. Negative Homans' sign bilaterally Patient has a healing wound to the lateral aspect of his right foot with good granulation tissue and no surrounding erythema warmth crepitus discharge or streaking Neuro oriented x3 Neuro Narrative: Patient has chronic deficits from previous CVA without acute/new findings Sensorium / Orientation: alert Psych mental status grossly normal Skin Skin Narrative: Soft tissue changes to the right foot as documented above MDM MDM MDM Narrative Medical decision making narrative: Patient presented to the ER satting 97% on room air in no acute distress. He did have rhonchi in his bilateral bases and reported chemical exposure earlier in the day. Secondary to this he was given a DuoNeb breathing treatment and an x-ray was obtained. Based on his complex medical history and right foot wound elected check basic labs as well. Blood work revealed no clinically significant findings. Foot x-ray showed no signs of osteomyelitis. Chest x-ray showed atelectasis without acute infiltrate which does correlate with his exam and history. After the breathing medication was given patient reported feeling better his pulse ox remained in the mid to high 90s and therefore as he is not requiring supplemental oxygen or having signs of systemic infection he is otherwise safe for discharge Lab Data Attestation: I reviewed the patient's lab results. Labs: Laboratory Results - last 24 hr 05/14/22 05/14/22 05/14/22 03:05 03:05 03:05 WBC 8.2 RBC 4.23 L Hgb 13.0 Hct 40.5 MCV 95.7 H MCH 30.7 MCHC 32.1 RDW Std Deviation 49.7 H RDW Coeff of [place] 14.2 Plt Count 252 MPV 9.9 Immature Gran % (Auto) 0.500 Neut % (Auto) 63.6 Lymph % (Auto) 24.5 [place] % (Auto) 7.8 Eos % (Auto) 3.2 Baso % (Auto) 0.4 Absolute Neuts (auto) 5.2 Absolute Lymphs (auto) 2.00 Nucleated RBC % 0 Sodium 141 Potassium 4.0 Chloride 106 Carbon Dioxide 30.0 Anion Gap 5 BUN 26 H Creatinine 1.61 H Estim Creat Clear Calc 43.45 Est GFR (MDRD) Af Amer 55 L Est GFR (MDRD) Non-Af 45 L BUN/Creatinine Ratio 16.1 Glucose 223 H Calcium 9.6 Magnesium 2.2 B-Natriuretic Peptide 30.7 Radiography Diagnostic Testing: Clinical Impression(s) from Imaging Studies Chest X-Ray 05/14/22 02:46 IMPRESSION: Left greater than right lower lobe atelectasis. Prominence of the right-sided paramediastinal soft tissue which may represent summation of shadows with mediastinal fat, versus vascular ectasia versus enlargement of the thyroid or less likely lymphadenopathy. Improved inspiration since prior study. Electronically Signed: Chely Hester MD at 4:08 EDT , Foot X-Ray 05/14/22 02:46 IMPRESSION: Soft tissue edema bony osteopenia age-indeterminate fracture of the proximal fourth phalanx. Soft tissue edema Achilles and plantar spur. No visualized foreign body. No visualized obvious bony erosion. Electronically Signed: Chely Hester MD at 3:57 EDT , X-ray of the right foot as interpreted by the emergency medicine physician reveals soft tissue edema without acute bony erosion to suggest osteomyelitis 1 view chest x-ray as interpreted by the emergency medicine physician reveals bilateral atelectasis without acute infiltrate pneumothorax or pleural effusion. Discharge Plan Triage Chief Complaint: Shortness of Breath ED Provider: Jake Larose Dx/Rx/DC Orders Clinical Impression: Acute bronchospasm, Dyspnea, Hypertension, Morbid obesity, History of cerebrovascular accident Instructions: ED Bronchospasm (Adult), ED Dyspnea Prescriptions: New albuterol sulfate [Ventolin HFA] 90 mcg/actuation HFA aerosol inhaler 2 puff inhalation Q4H PRN PRN (Reason: Wheezing) Qty: 1 0RF epinastine 0.05 % drops 1 drp EACH EYE BID PRN (Reason: allergic symptoms) Qty: 5 0RF No Action losartan 50 MG tablet 150 mg PO DAILY acetaminophen 325 MG tablet 650 mg PO Q6H PRN (Reason: PAIN/FEVER) furosemide 20 MG tablet 40 mg PO DAILY lorazepam 1 MG tablet 1 mg PO BID metoprolol tartrate 25 MG tablet 100 mg PO DAILY aspirin 81 MG tablet 162 mg PO DAILY@0800 glimepiride 4 MG tablet 4 mg PO BID metformin 500 MG tablet 1,000 mg PO BID naproxen 500 MG tablet 500 mg PO QHS metoprolol tartrate 25 MG tablet 50 mg PO QHS Zyrtec 10 MG capsule 20 mg PO DAILY Azo Bladder Control 300 MG capsule 600 mg PO DAILY atorvastatin [Lipitor] 40 mg Tablet 40 mg PO DAILY pantoprazole [Protonix] 20 mg Tablet,Delayed Release (Dr/Ec) 20 mg PO DAILY insulin aspart U-100 [Novolog Flexpen U-100 Insulin] 100 unit/mL (3 mL) Insulin Pen 30 unit SUBCUT TID gabapentin 300 mg Tablet 300 mg PO DAILY gabapentin 300 mg Tablet 900 mg PO QHS Tresiba FlexTouch U-200 200 unit/mL (3 mL) Insulin Pen 130 unit SUBCUT QHS Trulicity 4.5 mg/0.5 mL Pen Injector 4.5 mg SUBCUT QWEEK Rx Instructions: SUNDAYS Primary Care Provider: Jason Moffett Referrals: Jason Moffett DO [Primary Care Provider] - Disposition Disposition: Home, Self Care Discharge Date/Time: 05/14/22 05:03
[2022-05-14 04:37] VITALS: BP 168/79; PULSE 77; RESP 20; O2SAT 97
== END 2022-05-14 05:03 | disposition home or self-care (01) ==
PROVIDERS: Emergency Provider Emergency Medicine; PCP Student in an Organized Health Care Education/Training Program; Visit Provider Emergency Medicine
DX: J98.01 Acute bronchospasm (principal); J44.9 Chronic obstructive pulmonary disease, unspecified; E66.01 Morbid (severe) obesity due to excess calories; E11.9 Type 2 diabetes mellitus without complications; Z87.891 Personal history of nicotine dependence; I10 Essential (primary) hypertension; Z86.73 Personal history of transient ischemic attack (TIA), and cerebral infarction without residual deficits; R06.00 Dyspnea, unspecified; J45.909 Unspecified asthma, uncomplicated; Z99.89 Dependence on other enabling machines and devices; G47.30 Sleep apnea, unspecified
CPT/HCPCS: 71045; 73620; 80048; 83735; 83880; 85025; 87811; 94640; 99251; 99283; A4216; G0463

== ENCOUNTER 2023-04-05 20:14 | Emergency (ER) | payer MEDICARE, OTHER, SELFPAY ==
[2023-04-05 20:17] VITALS: BP 130/61; PULSE 71; RESP 18; TEMP 36.6; O2SAT 96
--- NOTE | 2023-04-05 22:24 | EX.ED.DYSGE1 ---
HPI History of Present Illness Chief Complaint: Sore Throat Informant: patient and spouse/S.O. Narrative Narrative: Patient is a 72-year-old male with past medical history of morbid obesity hypertension hyperlipidemia and sleep apnea. He states in the last 2 days he has been having increasing sore throat. He denies any known sick contacts. He states he is able to swallow but it is painful to do so. He states that in the past with symptoms like this he has had strep throat and has concern for this once again and therefore comes in for evaluation. [facility] Medical History Asthma COPD (chronic obstructive pulmonary disease) CPAP (continuous positive airway pressure) dependence Depression Diabetes Former smoker GERD (gastroesophageal reflux disease) Kidney disease Osteoporosis Skin cancer Sleep apnea Stroke/cerebrovascular accident Home Medications acetaminophen 325 mg tablet 650 mg PO Q6H PRN PAIN/FEVER 09/30/17 [History Last Taken Unknown] furosemide 20 mg tablet 40 mg PO DAILY 09/30/17 [History Last Taken Unknown] lorazepam 1 mg tablet 1 mg PO BID 09/30/17 [History Last Taken Unknown] losartan 50 mg tablet 150 mg PO DAILY 09/30/17 [History Last Taken 06/22/18 08:30] metoprolol tartrate 25 mg tablet 100 mg PO DAILY 09/30/17 [History Last Taken 06/22/18 08:30] aspirin 81 mg tablet,delayed release 162 mg PO DAILY@0800 06/20/18 [History Last Taken Unknown] cetirizine 10 mg capsule (Zyrtec) 20 mg PO DAILY 06/20/18 [History Last Taken Unknown] glimepiride 4 mg tablet 4 mg PO BID 06/20/18 [History Last Taken Unknown] metformin 500 mg tablet,extended release 24 hr 1,000 mg PO BID 06/20/18 [History Last Taken Unknown] metoprolol tartrate 25 mg tablet 50 mg PO QHS 06/20/18 [History Last Taken Unknown] naproxen 500 mg tablet 500 mg PO QHS 06/20/18 [History Last Taken Unknown] pumpkin seed extract-soy germ 300 mg capsule (Azo Bladder Control) 600 mg PO DAILY 06/20/18 [History Last Taken Unknown] albuterol sulfate 90 mcg/actuation aerosol inhaler (Ventolin HFA) 2 puff inhalation Q4H PRN PRN Wheezing #1 device 05/14/22 [Rx Last Taken Unknown] atorvastatin 40 mg tablet (Lipitor) 40 mg PO DAILY 05/14/22 [History Last Taken Unknown] dulaglutide 4.5 mg/0.5 mL subcutaneous pen injector (Trulicity) 4.5 mg subcut QWEEK 05/14/22 [History Last Taken Unknown] epinastine 0.05 % eye drops 1 drp EACH EYE BID PRN allergic symptoms #5 mL 05/14/22 [Rx Last Taken Unknown] gabapentin 300 mg tablet 300 mg PO DAILY 05/14/22 [History Last Taken Unknown] gabapentin 300 mg tablet 900 mg PO QHS 05/14/22 [History Last Taken Unknown] insulin aspart U-100 100 unit/mL (3 mL) subcutaneous pen (Novolog FlexPen U-100 Insulin aspart) 30 unit subcut TID 05/14/22 [History Last Taken Unknown] insulin degludec 200 unit/mL (3 mL) subcutaneous pen (Tresiba FlexTouch U-200 insulin) 130 unit subcut QHS 05/14/22 [History Last Taken Unknown] pantoprazole 20 mg tablet,delayed release (Protonix) 20 mg PO DAILY 05/14/22 [History Last Taken Unknown] lidocaine HCl 4 % (40 mg/mL) mucosal solution 1 applic mucous membrane TID PRN pain #50 mL 04/05/23 [Rx Last Taken Unknown] penicillin V potassium 500 mg tablet 500 mg PO BID 7 days #14 tabs 04/05/23 [Rx Last Taken Unknown] Allergy/AdvReac Type Severity Reaction Status Date / Time isosorbide dinitrate Allergy Other Verified 04/05/23 20:17 [From Isordil] prednisone Allergy Swelling Verified 04/05/23 20:17 morphine AdvReac Other Verified 04/05/23 20:17 Social History Smoking Status: Former smoker ROS ROS ED Constitutional Constitutional ED: Denies chills or fever(s) ENT ENT ED: Reports rhinorrhea and sore throat Cardiovascular Cardiovascular: Denies chest pain Respiratory/Chest Respiratory/Chest: Denies cough or dyspnea Gastrointestinal Gastrointestinal: Denies abdominal pain, diarrhea, nausea or vomiting Genitourinary Genitourinary ED: Denies dysuria Musculoskeletal Musculoskeletal: Denies myalgias Integumentary Denies rash Neurologic Neurologic: Denies headache(s) Hematologic/Lymphatic Hematologic/Lymphatic: Denies easy bleeding or easy bruising EXAM Physical Exam Const Vital Signs: 04/05/23 20:17 04/05/23 22:25 Temperature 98 F Temperature Source Temporal Pulse Rate 71 Respiratory Rate 18 Respiratory Effort Normal Respiratory Pattern Normal Blood Pressure 130/61 H Blood Pressure Mean 84 Pulse Ox 96 Oxygen Delivery Method Room Air Positive well nourished, well developed and obese General Appearance ED: well developed Nutritional Appearance: obese HEENT HEENT Narrative: Nasal mucosa is hyperemic and boggy. Posterior pharynx displays erythema consistent with sinus drainage without airway edema or compromise. No hard palate petechiae no trismus no change in voice or difficulty with secretions Eyes PERRL and EOMs intact bilaterally Neck supple Neck Narrative: Tender anterior lymph nodes noted No crepitance palpated Resp normal respiratory effort and clear to auscultation bilaterally Cardio regular rate and regular rhythm Extremity normal to inspection Neuro oriented x3 and CN's II-XII intact bilaterally Sensorium / Orientation: alert Psych mental status grossly normal Skin no rashes or lesions noted MDM MDM MDM Narrative Medical decision making narrative: Patient presented to the ER afebrile and in no acute respiratory distress. He reported a sore throat but did not have crepitance on exam and he was able to swallow and had no signs of respiratory distress therefore my concern for epiglottitis versus retropharyngeal or peritonsillar abscess is low. Exam indicates that this is most likely viral pharyngitis. However based on the patient's morbid obesity and diabetes concern for developing secondary infection is high. Also as patient reports that this feels similar nature to his past bouts of strep I felt that there is no need to perform a swab and patient can simply be treated for potential pharyngitis from strep bacteria. The patient agrees with this plan of care and feels comfortable with it. Therefore patient was started on Pen-Vee K secondary to concern for bacterial pharyngitis given viscous lidocaine to help with pain but as he does not have crepitance or signs of epiglottitis or peritonsillar abscess there is no need for further evaluation and he is otherwise safe for discharge History & Record Review Discussion w/independent historian: Patient and Significant other Discharge Plan Triage Chief Complaint: Sore Throat ED Provider: Jake Larose Dx/Rx/DC Orders Clinical Impression: Pharyngitis, Obstructive sleep apnea, Morbid obesity Instructions: ED Pharyngitis, Viral Prescriptions: New penicillin V potassium 500 mg tablet 500 mg PO BID 7 Days Qty: 14 0RF lidocaine HCl 4 % (40 mg/mL) solution 1 applic mucous membrane TID PRN (Reason: pain) Qty: 50 0RF No Action losartan 50 MG tablet 150 mg PO DAILY acetaminophen 325 MG tablet 650 mg PO Q6H PRN (Reason: PAIN/FEVER) furosemide 20 MG tablet 40 mg PO DAILY lorazepam 1 MG tablet 1 mg PO BID metoprolol tartrate 25 MG tablet 100 mg PO DAILY aspirin 81 MG tablet 162 mg PO DAILY@0800 glimepiride 4 MG tablet 4 mg PO BID metformin 500 MG tablet 1,000 mg PO BID naproxen 500 MG tablet 500 mg PO QHS metoprolol tartrate 25 MG tablet 50 mg PO QHS Zyrtec 10 MG capsule 20 mg PO DAILY Azo Bladder Control 300 MG capsule 600 mg PO DAILY atorvastatin [Lipitor] 40 mg Tablet 40 mg PO DAILY pantoprazole [Protonix] 20 mg Tablet,Delayed Release (Dr/Ec) 20 mg PO DAILY insulin aspart U-100 [Novolog FlexPen U-100 Insulin] 100 unit/mL (3 mL) Insulin Pen 30 unit SUBCUT TID gabapentin 300 mg Tablet 300 mg PO DAILY gabapentin 300 mg Tablet 900 mg PO QHS Tresiba FlexTouch U-200 200 unit/mL (3 mL) Insulin Pen 130 unit SUBCUT QHS Trulicity 4.5 mg/0.5 mL Pen Injector 4.5 mg SUBCUT QWEEK Rx Instructions: SUNDAYS albuterol sulfate [Ventolin HFA] 90 mcg/actuation HFA aerosol inhaler 2 puff inhalation Q4H PRN PRN (Reason: Wheezing) Qty: 1 0RF epinastine 0.05 % drops 1 drp EACH EYE BID PRN (Reason: allergic symptoms) Qty: 5 0RF Primary Care Provider: Jason Moffett Referrals: Jason Moffett DO [Primary Care Provider] - Activity Restrictions/Additional Instructions: Please stop your daily antibiotic for UTI prevention and take the penicillin as directed secondary to your sore throat. Your exam and case this is most likely viral in nature which will need to resolve spontaneously over the next 5 to 7 days. However if you have worsening symptoms by taking her medication please return for repeat evaluation Disposition Disposition: Home, Self Care Discharge Date/Time: 04/05/23 23:28
[2023-04-05] MEDS: Penicillin Vk 250 MG Tablet 500 MG PO (22:40)
== END 2023-04-05 23:28 | disposition home or self-care (01) ==
PROVIDERS: Emergency Provider Emergency Medicine; PCP Student in an Organized Health Care Education/Training Program; Visit Provider Emergency Medicine
DX: J02.9 Acute pharyngitis, unspecified (principal); J44.9 Chronic obstructive pulmonary disease, unspecified; E66.01 Morbid (severe) obesity due to excess calories; E11.9 Type 2 diabetes mellitus without complications; Z79.4 Long term (current) use of insulin; Z87.891 Personal history of nicotine dependence; G47.33 Obstructive sleep apnea (adult) (pediatric); I10 Essential (primary) hypertension; Z79.899 Other long term (current) drug therapy; Z79.82 Long term (current) use of aspirin; Z79.84 Long term (current) use of oral hypoglycemic drugs; Z79.85 Long-term (current) use of injectable non-insulin antidiabetic drugs; K21.9 Gastro-esophageal reflux disease without esophagitis; Z99.89 Dependence on other enabling machines and devices
CPT/HCPCS: 99284

== ENCOUNTER 2023-08-10 06:32 | Day surgery (SDC) | payer MEDICARE, OTHER, SELFPAY ==
--- NOTE | 2023-08-10 07:00 | HP.PCM_ITS ---
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 Is patient in pain?: No Allergies isosorbide dinitrate [From Isordil] Allergy (Verified 06/23/23 13:34) Otherprednisone Allergy (Verified 06/23/23 13:34) Swellingciprofloxacin Adverse Reaction (Intermediate, Verified 06/23/23 13:34) VomitingTricyclic Antidepressants and Tricy Adverse Reaction (Intermediate, Verified 06/23/23 13:34) blackoutsmorphine Adverse Reaction (Verified 06/23/23 13:34) Other Medications cetirizine 10 mg capsule (Zyrtec) 20 mg PO DAILY 06/20/18 [History Confirmed 06/23/23] glimepiride 4 mg tablet 4 mg PO BID 06/20/18 [History Confirmed 06/23/23] metformin 500 mg tablet,extended release 24 hr 1,000 mg PO BID 06/20/18 [History Confirmed 06/23/23] atorvastatin 40 mg tablet (Lipitor) 40 mg PO DAILY 05/14/22 [History Confirmed 06/23/23] dulaglutide 4.5 mg/0.5 mL subcutaneous pen injector (Trulicity) 4.5 mg subcut QWEEK 05/14/22 [History Confirmed 06/23/23] gabapentin 300 mg tablet 900 mg PO QHS 05/14/22 [History Confirmed 06/23/23] insulin aspart U-100 100 unit/mL (3 mL) subcutaneous pen (Novolog FlexPen U-100 Insulin aspart) 30 unit subcut TID 05/14/22 [History Confirmed 06/23/23] insulin degludec 200 unit/mL (3 mL) subcutaneous pen (Tresiba FlexTouch U-200 insulin) 130 unit subcut QHS 05/14/22 [History Confirmed 06/23/23] pantoprazole 20 mg tablet,delayed release (Protonix) 20 mg PO DAILY 05/14/22 [History Confirmed 06/23/23] Lactobacillus acidophilus 100 mg (1 billion cell) capsule 100 mmu cells PO DAILY 06/11/23 [History Confirmed 06/23/23] fish, borage, flaxseed oils-omega 3,6,9 comb no.1 1,200 mg capsule 2 cap PO BID 06/11/23 [History Confirmed 06/23/23] furosemide 40 mg tablet 40 mg PO DAILY 06/11/23 [History Confirmed 06/23/23] gabapentin 300 mg tablet 600 mg PO DAILY 06/11/23 [History Confirmed 06/23/23] lorazepam 1 mg tablet 1 mg PO BID PRN 06/11/23 [History Confirmed 06/23/23] losartan 100 mg tablet 150 mg PO DAILY 06/11/23 [History Confirmed 06/23/23] metoprolol succinate 100 mg tablet,extended release 24 hr 50 mg PO QHS 06/11/23 [History Confirmed 06/23/23] metoprolol succinate 100 mg tablet,extended release 24 hr 100 mg PO DAILY 06/11/23 [History Confirmed 06/23/23] aspirin 81 mg tablet,delayed release 243 mg PO DAILY 06/14/23 [History Confirmed 06/23/23] cranberry fruit concentrate 250 mg chewable tablet (Azo Cranberry) 500 mg PO DAILY 06/14/23 [History Confirmed 06/23/23] naproxen 500 mg tablet 500 mg PO QHS 06/14/23 [History Confirmed 06/23/23] valacyclovir 1 gram tablet (Valtrex) 1,000 mg PO TID PRN 06/14/23 [History Confirmed 06/23/23] [facility] Medical History Abnormality of gait due to impairment of balance Acute respiratory failure Anxiety Aspiration pneumonia Asthma Atherosclerosis of coronary artery of [place] heart without angina pectoris Cardiomegaly Carpal tunnel syndrome Chronic pain Chronic pain of left knee Chronic prostatitis Chronic venous insufficiency CKD (chronic kidney disease) stage 3, GFR 30-59 ml/min Congestive heart failure (CHF) COPD (chronic obstructive pulmonary disease) CPAP (continuous positive airway pressure) dependence Depression Diabetes Dysmetabolic syndrome X Family hx of colon cancer Former smoker Gait disorder GERD (gastroesophageal reflux disease) Herpes zoster Hx of pulmonary hypertension Hyperlipidemia Hypertension Kidney disease Morbid obesity Numbness of right foot Obstructive sleep apnea Osteoarthritis of hip Osteoporosis Positional vertigo Post traumatic osteoarthritis of hip Respiratory failure Skin cancer Sleep apnea Stroke/cerebrovascular accident (~08/22/17) Suicide attempt Surgical History History of cancer surgery History of left heart catheterization (LHC) (~10/1995) Hx of tracheostomy (~08/2017) Family History Mother HypertensionFather Colon cancerOther Family hx of colorectal cancer Social History (Updated 06/14/23 @ 11:50 by Denise Alvarenga, RN) Smoking Status: Former smoker how long ago did patient quit smokin alcohol intake: never substance use type: does not use caffeine: No HPI HPI HPI: Patient is a 72-year-old male here with positive fecal occult blood test. The patient has last colonoscopy 5 years ago. At that time he had a polyp removed from the rectum. He was recommended to repeat in 5 years. He has a family history of colon cancer in his father at age 60. Patient also had some bright red blood per rectum about few weeks ago but this resolved and stopped. He denies any abdominal pain. ROS General General: No weight change, appetite, fatigue, colon cancer, breast cancer or weakness HEENT HEENT: Yes difficulty swallowing; No eye injury, eye surgery, swollen glands or hoarseness Endo Endocrine: Yes diabetes mellitus; No thyroid disease, thyroid cancer, Hair loss, heat intolerance or cold intolerance Musc Musculoskeletal: Yes back problems, arthritis and rheumatoid arthritis; No gout or joint pain Cardio Cardiovascular: Yes murmur and high blood pressure; No pacemaker, heart disease, atrial fibrillation, heart attack, heart stent, palpitations, shortness of breat with exertion or chest pain Psych Psychiatric: Yes depression and anxiety; No hearing voices Resp Respiratory: No shortness of breath, Yes sleep apnea, Yes cough, Yes COPD, Yes asthma, No emphysema and No wheezing Gastro Gastrointestinal: No abdominal pain, No nausea or vomiting, No diarrhea, No constipation, Yes blood in stool, Yes acid reflux, Yes hemorrhoids, No ulcers, No gallbladder problem and No black,tarry stools Tony Hematologic: No blood thinners, No blood disorders, No bleeding, No anemia and No blood clots Neuro Neurologic: No weakness Exam Const General: cooperative Orientation: alert and oriented x3 HENMT Head: normal to inspection Neck Neck: normal visual inspection and full ROM Chest Chest palpation & inspection: normal inspection of the chest Resp Effort & Inspection: normal respiratory effort Auscultation: clear to auscultation bilaterally Cardio Rate: regular rate Rhythm: regular rhythm GI Inspection: non-distended Palpation: soft and nontender Skin General: no rashes or lesions noted Neuro General: patient alert and patient oriented x3 Extrem General: full ROM Psych Appearance: grossly normal Mental Status: mental status grossly normal Assessment and Plan Assessment and Plan (1) Morbid obesity with BMI of 60.0-69.9, adult: Status: Chronic (2) Blood in stool: Status: Acute Orders: Orders Colonoscopy Today Plan The patient saw blood in his stool but then it resolved. He reports that it was bright red. Patient had a polyp 5 years ago in the rectum. I explained endoscopy in detail to the patient. I explained the risks including but not limited to stroke or heart attack with anesthesia, perforation of the GI tract, bleeding, infection. I explained that any of these could necessitate further emergency surgery. The patient understands and all questions were answered sufficiently. The patient wishes to proceed with procedure. Chang Daniel MD Pager: [facility] [address] [place] [address], [address] [place] [address] Office: I have examined the patient and the H&P has been reviewed. There are no clinical changes since date of exam.
[2023-08-10] MEDS: Lactated Ringers 1,000 ML 15 ML IV (07:03)
[2023-08-10 07:04] VITALS: BP 157/76; PULSE 66; RESP 17; TEMP 36.6; O2SAT 99; BMI 65.1
[2023-08-10 07:24] LABS: Bedside Glucose 109 mg/dL (74-106)
--- NOTE | 2023-08-10 07:30 | COLBX_PTH ---
PATIENT: Ct SILVEIRA LOC: EN U#:[id number] AGE/SX: 73/M ROOM: RE08/10/[address]: Dr. Chang Daniel MD : 1950 BED: DIS: 08/10/2023 SPEC #: [id number] RECD: 08/10/23 13:10 STATUS: IESHA VEE #: [id number] COLLETTE: 08/10/23 07:[address]: Chang Daniel DEPT: SURGICAL PATHOLOGY RECD BY: Yolanda Greenberg ENTERED: 08/10/23 13:34 SP TYPE: COLON BX OTHR DR: Dr. Jason Moffett, Tissues: Transverse colon Procedures: Surgery Specimen Level IV HEADER OPERATION: Colonoscopy, polypectomy PRE-OP DIAGNOSIS: Morbid obesity, blood in stool TISSUE SUBMITTED: Transverse polyp MICROSCOPIC DIAGNOSIS Transverse colon polyp, biopsy: Tubular adenoma. AM:olvin 08/11/2023 MICROSCOPIC DESCRIPTION Slides are reviewed. GROSS DESCRIPTION Received in fixative is one container labeled with the patient's name and designated transverse polyp. The specimen consists of one irregular fragment of light berger soft tissue that measures 0.4 x 0.4 x 0.2 cm. Multiple fragments of fecal material are also noted. The specimen is totally submitted in one cassette. / SJ:olvin 08/10/2023 TC:5 CPT: 44058
[2023-08-10 08:35] VITALS: BP 105/52; BP 157/76; PULSE 70; RESP 16; TEMP 36.6; O2SAT 93
--- NOTE | 2023-08-10 08:38 | OP.CCLET_ITS ---
08/10/2023 Jason Moffett [address] [place] [address] Re : Colonoscopy procedure for Ct Chaney Dear Dr. Moffett This procedure was performed on Thursday, August 10, 2023. My impressions and recommendations are as follows: Impressions : - The entire examined colon is normal on direct and retroflexion views. - No specimens collected. Recommendations : - Discharge patient to home. - Resume previous diet. - Continue present medications. - Await pathology results. - Repeat colonoscopy in 5 years for surveillance based on pathology results. My findings are described in the full procedure note, which is enclosed. If I can be of further assistance, please feel free to contact me at Doctor phone number(s): , Work: . Sincerely, Chang Daniel MD 08/10/2023 8:38:08 AM This report has been signed electronically.
--- NOTE | 2023-08-10 08:38 | OP.COLON_ITS ---
Patient Name: Ct Chaney Procedure Date: 08/10/2023 7:53 AM Date of : 1950 Age: 73 Procedure: Colonoscopy Indications: Rectal bleeding Providers: Chang Daniel MD Medicines: Monitored Anesthesia Care Patient Profile: This is a 73 year old male. Refer to note in patient chart for documentation of history and physical. Last Colonoscopy: none. The patient's first colonoscopy is today. Complications: No immediate complications. Procedure: Pre-Anesthesia Assessment: - Prior to the procedure, a History and Physical was performed, and patient medications and allergies were reviewed. The patient's tolerance of previous anesthesia was also reviewed. The risks and benefits of the procedure and the sedation options and risks were discussed with the patient. All questions were answered, and informed consent was obtained. Prior Anticoagulants: The patient has taken no anticoagulant or antiplatelet agents. After reviewing the risks and benefits, the patient was deemed in satisfactory condition to undergo the procedure. After I obtained informed consent, the scope was passed under direct vision. Throughout the procedure, the patient's blood pressure, pulse, and oxygen saturations were monitored continuously. The Colonoscope was introduced through the anus and advanced to the cecum, identified by appendiceal orifice and ileocecal valve. The colonoscopy was performed without difficulty. The patient tolerated the procedure well. The quality of the bowel preparation was good. The ileocecal valve, appendiceal orifice, and rectum were photographed. Scope In: 8:06:18 AM Scope Withdrawal Time 0 hours 12 minutes 41 seconds Scope Out: 8:30:01 AM Total Procedure Duration Time 0 hours 23 minutes 43 seconds Findings: The entire examined colon appeared normal on direct and retroflexion views. A polyp was found in the transverse colon. The polyp was removed with a hot snare. Resection and retrieval were complete. Impression: - The entire examined colon is normal on direct and retroflexion views. - No specimens collected. Recommendation: - Discharge patient to home. - Resume previous diet. - Continue present medications. - Await pathology results. - Repeat colonoscopy in 5 years for surveillance based on pathology results. Procedure Code(s): --- Professional --- 21563, Colonoscopy, flexible; with removal of tumor(s), polyp(s), or other lesion(s) by snare technique Diagnosis Code(s): --- Professional --- K62.5, Hemorrhage of anus and rectum CPT copyright 2021 [employer]. All rights reserved. The codes documented in this report are preliminary and upon construction producer review may be revised to meet current compliance requirements. Chang Daniel MD 08/10/2023 8:38:08 AM This report has been signed electronically. Number of Addenda: 0 Note Initiated On: 08/10/2023 7:53 AM
[2023-08-10 08:40] VITALS: BP 102/57; BP 157/76; PULSE 70; RESP 16; O2SAT 95
[2023-08-10 08:45] VITALS: BP 113/60; BP 157/76; PULSE 70; RESP 16; TEMP 36.1; O2SAT 97
[2023-08-10 09:07] VITALS: BP 157/76
== END 2023-08-10 09:34 | disposition home or self-care (01) ==
LOC: EN 06:32 → AC 06:33
PROVIDERS: PCP Student in an Organized Health Care Education/Training Program; Referring Provider Student in an Organized Health Care Education/Training Program; Visit Provider Surgery
PROC: 0DJD8ZZ Inspection of Lower Intestinal Tract, Via Natural or Artificial Opening Endoscopic (ICD-10-PCS; CPT 45378; principal; 2023-08-10 07:25)
DX: K62.5 Hemorrhage of anus and rectum (principal); J44.9 Chronic obstructive pulmonary disease, unspecified; I50.9 Heart failure, unspecified; I13.0 Hypertensive heart and chronic kidney disease with heart failure and stage 1 through stage 4 chronic kidney disease, or unspecified chronic kidney disease; E11.22 Type 2 diabetes mellitus with diabetic chronic kidney disease; E66.01 Morbid (severe) obesity due to excess calories; Z68.44 Body mass index [BMI] 60.0-69.9, adult; N18.30 Chronic kidney disease, stage 3 unspecified; Z79.84 Long term (current) use of oral hypoglycemic drugs; G89.29 Other chronic pain; I25.10 Atherosclerotic heart disease of native coronary artery without angina pectoris; Z87.891 Personal history of nicotine dependence; Z80.0 Family history of malignant neoplasm of digestive organs; Z90.49 Acquired absence of other specified parts of digestive tract; E78.5 Hyperlipidemia, unspecified; D12.3 Benign neoplasm of transverse colon
CPT/HCPCS: 45385; 82962; 88305; J7120

== ENCOUNTER 2023-12-10 21:22 | Inpatient (IN) | payer MEDICARE, OTHER, SELFPAY ==
[2023-12-10 21:23] VITALS: BP 162/58; PULSE 90; RESP 25; TEMP 38.6; O2SAT 88; O2SAT 94; BMI 65.7
[2023-12-10 21:31] VITALS: O2SAT 95
[2023-12-10 21:33] VITALS: BP 164/65; PULSE 92; RESP 22; TEMP 38.6; O2SAT 95
[2023-12-10] MEDS: Acetaminophen 500 MG Tablet 1000 MG PO (21:45)
[2023-12-10 22:00] LABS: Absolute Lymphocyte Count 0.65 X10^3/uL (0.83-4.51); Absolute Neutrophil Count 7.3 X10^3/uL (2.0-7.7); Basophil# 0.03 X10^3/uL; Basophil% 0.3 % (0-1); Eosinophil# 0.07 X10^3/uL; Eosinophils% 0.8 % (0-5); Hematocrit 40.2 % (40-54); Hemoglobin 12.7 g/dL (13.0-16.5); Lymphocyte # 0.65 X10^3/ul (0.83-4.51); Lymphocyte % 7.2 % (19-41); Mean Corp Hgb Conc 31.6 g/dL (32-36); Mean Corpuscular Hgb 29.7 pg (27.0-32.0); Mean Corpuscular Volume 93.9 fL (80-94); Mean Platelet Vol. 9.8 fl (6.2-12.0); Monocyte# 0.92 X10^3/uL; Monocyte% 10.2 % (0-10); NRBC Flagged by Analyzer 0 % (0-5); Neutrophil # 7.31 X10^3/uL (2.7-7.7); Neutrophil % 80.9 % (47-70); Platelet Count 207 K/mm3 (150-450); RBC Distribution Width SD 51.9 fl (35.1-43.9); Red Blood Count 4.28 M/mm3 (4.6-6.2)
--- NOTE | 2023-12-10 22:03 | RAD_ITS ---
INDICATION: cough EXAMINATION/TECHNIQUE: X-RAY - AP and lateral views of chest COMPARISON: None. FINDINGS: LINES/DEVICES: None. LUNGS: Mild bilateral peribronchial thickening. No sizable pleural effusion. No pneumothorax detected. MEDIASTINUM AND CARDIOVASCULAR STRUCTURES: Heart size within normal limits for imaging technique. Mediastinal contours unremarkable. BONES AND SOFT TISSUES: No acute findings. RAD/Chest PA and Lateral IMPRESSION: Peribronchial thickening suggesting bronchiolitis, correlate clinically. Electronically Signed: Seymour Jeong MD at 22:39 EDT ,
[2023-12-10 22:13] LABS: Anion Gap 7 (5-15); BUN 23 mg/dL (7-18); BUN/Creat Ratio 14.3 RATIO (10-20); Calcium,Total 9.3 mg/dL (8.5-10.1); Chloride 105 mmol/L (98-107); Creatinine, Serum 1.61 mg/dL (0.70-1.30); EST Glomerular Filtration Rate 45 mL/min (>60); Est Glom Filt Rate - Afr Amer 54 mL/min (>60); Estimated Creatinine Clearance 73.36 ml/min; Glucose 175 mg/dL (74-106); Potassium 4.1 mmol/L (3.5-5.1); Sodium Level 138 mmol/L (136-145)
[2023-12-10 22:22] VITALS: BP 167/72; PULSE 89; RESP 22; O2SAT 91
--- NOTE | 2023-12-10 22:26 | EX.ED.VIS.UR ---
HPI HPI - URI History of Present Illness Chief Complaint: Weakness Informant: patient and spouse/S.O. Onset/Context/Timing Onset: Days Context: Gradual Onset Timing: Continuous Current Severity: Moderate Maximum Severity: Moderate Associated Symptoms Associated Symptoms: Positive for Nasal Congestion, Nausea, Vomiting and Productive Cough Narrative Narrative: 73-year-old male who is unable to walk due to weakness and numbness in both feet that is chronic. He has history of diabetes, chronic kidney disease and CHF. Since his had URI symptoms she got well quickly developed the same symptoms on Wednesday of this week and has been progressively getting worse. He had a fever on Wednesday. Runny nose. Has had dizziness. Nausea and dry heaves. Denies any dysuria. He does have brown-colored sputum. Patient is wheel chair bound at home. cares for him at home. Prior similar symptoms: Yes Recent Illness/Hospitalization: No ROS ROS ED ROS Narrative Cough. Fever and chills. Nausea vomiting. Review of Systems ROS Unobtainable: Denies due to encephalopathy Constitutional Constitutional ED: Reports chills and fever(s) Eyes Eyes: Denies blurry vision ENT ENT ED: Denies ear pain Cardiovascular Cardiovascular: Denies chest pain or palpitations Respiratory/Chest Respiratory/Chest: Reports cough and sputum Gastrointestinal Gastrointestinal: Reports nausea and vomiting; Denies abdominal pain, constipation, diarrhea or melena Genitourinary Genitourinary ED: Denies dysuria or hematuria Musculoskeletal Musculoskeletal: Denies arthralgias Integumentary Denies abscess or Abrasions Neurologic Neurologic: Denies headache(s) Psychiatric Psychiatric: Denies anxiety or depression Endocrine Endocrinology: Denies cold intolerance Hematologic/Lymphatic Hematologic/Lymphatic: Denies easy bleeding, easy bruising or lymphadenopathy Allergic/Immunologic Allergic/Immunologic ED: Denies mouth swelling, tongue swelling or urticaria [facility] Medical History Abnormality of gait due to impairment of balance Acute respiratory failure Anxiety Anxiety Arthritis Aspiration pneumonia Asthma Atherosclerosis of coronary artery of [place] heart without angina pectoris Back pain Cardiology follow-up encounter Cardiomegaly Chronic venous insufficiency CKD (chronic kidney disease) stage 3, GFR 30-59 ml/min Congestive heart failure (CHF) COPD (chronic obstructive pulmonary disease) CPAP (continuous positive airway pressure) dependence Depression Diabetes Dietary restriction Dysmetabolic syndrome X Fatty liver Former smoker Gait disorder GERD (gastroesophageal reflux disease) Herpes zoster History of CHF (congestive heart failure) History of echocardiogram History of edema History of hiatal hernia History of stress test Hx of pilonidal cyst Hx of pulmonary hypertension Hyperlipidemia Hypertension Hypertension Hypertension Insulin dependent diabetes mellitus Morbid obesity Numbness of right foot Obstructive sleep apnea Osteoporosis Positional vertigo PVD (peripheral vascular disease) Respiratory failure Sleep apnea Stroke/cerebrovascular accident (~08/22/17) Suicide attempt Uses wheelchair Home Medications cetirizine 10 mg capsule (Zyrtec) 20 mg PO DAILY 06/20/18 [History Last Taken Unknown] glimepiride 4 mg tablet 4 mg PO BID 06/20/18 [History Last Taken Unknown] metformin 500 mg tablet,extended release 24 hr 1,000 mg PO BID 06/20/18 [History Last Taken Unknown] atorvastatin 40 mg tablet (Lipitor) 40 mg PO QHS 05/14/22 [History Last Taken Unknown] dulaglutide 4.5 mg/0.5 mL subcutaneous pen injector (Trulicity) 4.5 mg subcut NEGRETE 05/14/22 [History Last Taken Unknown] gabapentin 300 mg tablet 900 mg PO QHS 05/14/22 [History Last Taken Unknown] insulin aspart U-100 100 unit/mL (3 mL) subcutaneous pen (Novolog FlexPen U-100 Insulin aspart) 30 unit subcut TID 05/14/22 [History Last Taken Unknown] insulin degludec 200 unit/mL (3 mL) subcutaneous pen (Tresiba FlexTouch U-200 insulin) 130 unit subcut QHS 05/14/22 [History Last Taken Unknown] pantoprazole 20 mg tablet,delayed release (Protonix) 20 mg PO DAILY 05/14/22 [History Last Taken Unknown] Lactobacillus acidophilus 100 mg (1 billion cell) capsule 100 mmu cells PO DAILY 06/11/23 [History Last Taken Unknown] fish, borage, flaxseed oils-omega 3,6,9 comb no.1 1,200 mg capsule 2 cap PO BID 06/11/23 [History Last Taken Unknown] furosemide 40 mg tablet 40 mg PO DAILY 06/11/23 [History Last Taken Unknown] gabapentin 300 mg tablet 600 mg PO DAILY 06/11/23 [History Last Taken Unknown] lorazepam 1 mg tablet 1 mg PO BID anxiety 06/11/23 [History Last Taken Unknown] losartan 100 mg tablet 50 mg PO QHS 06/11/23 [History Last Taken Unknown] metoprolol succinate 100 mg tablet,extended release 24 hr 50 mg PO QHS 06/11/23 [History Last Taken Unknown] metoprolol succinate 100 mg tablet,extended release 24 hr 100 mg PO DAILY 06/11/23 [History Last Taken Unknown] aspirin 81 mg tablet,delayed release 243 mg PO QHS 06/14/23 [History Last Taken 08/05/23] cranberry fruit concentrate 250 mg chewable tablet (Azo Cranberry) 500 mg PO QHS 06/14/23 [History Last Taken Unknown] naproxen 500 mg tablet 500 mg PO QHS 06/14/23 [History Last Taken Unknown] valacyclovir 1 gram tablet (Valtrex) 1,000 mg PO TID PRN SHINGLES 06/14/23 [History Last Taken Unknown] losartan 100 mg tablet 100 mg PO DAILY 08/05/23 [History Last Taken Unknown] Allergy/AdvReac Type Severity Reaction Status Date / Time isosorbide dinitrate Allergy Other Verified 12/10/23 21:30 [From Isordil] prednisone Allergy Swelling Verified 12/10/23 21:30 ciprofloxacin AdvReac Intermediate Vomiting Verified 12/10/23 21:30 Tricyclic Antidepressants AdvReac Intermediate blackouts Verified 12/10/23 21:30 and Tricy morphine AdvReac Other Verified 12/10/23 21:30 Family History Mother Hypertension Father Colon cancer Other Family hx of colorectal cancer Surgical History History of cancer surgery History of left heart catheterization (LHC) (~10/1995) Hx of colonoscopy Hx of tracheostomy (~08/2017) Social History household members: spouse Smoking Status: Former smoker how long ago did patient quit smokin alcohol intake: never substance use type: does not use caffeine: No EXAM Physical Exam Narrative Exam Narrative: 73-year-old male fever 101.5. Treated with Tylenol already. Pulse ox 80% on room air. Hypoxia. 95% on 2 L. H EENT exam shows moist mucous membranes. Neck nontender. Lungs clear to auscultation bilaterally but distant bilaterally. Heart regular rhythm rate about 90 no murmur. Abdomen soft nontender. Moves all 4 extremities has weakness in both lower extremities and numbness in both lower extremities which is chronic. Neurologically is awake and alert. Again bilateral lower extremity weakness and numbness. He does not ambulate. Const Vital Signs: 12/10/23 21:23 12/10/23 21:23 12/10/23 21:31 Temperature 101.5 F H Temperature Source Oral Pulse Rate 90 Respiratory Rate 25 H Respiratory Effort Short of Breath Respiratory Pattern Tachypnea Blood Pressure 162/58 H Blood Pressure Mean 92 Pulse Ox 88 95 Oxygen Delivery Method Room Air Nasal Cannula Oxygen Flow Rate (L/min) 2 12/10/23 21:33 12/10/23 22:29 12/10/23 22:22 Temperature 101.5 F H 100.1 F H Temperature Source Oral Oral Pulse Rate 92 88 89 Respiratory Rate 22 H 19 H 22 H Respiratory Effort Respiratory Pattern Blood Pressure 164/65 H 167/72 H 167/72 H Blood Pressure Mean 98 103 103 Pulse Ox 95 93 91 Oxygen Delivery Method Nasal Cannula Nasal Cannula Nasal Cannula Oxygen Flow Rate (L/min) 2 2 2 12/10/23 23:00 12/11/23 00:00 Temperature 100 F H 100 F H Temperature Source Oral Oral Pulse Rate 87 86 Respiratory Rate 19 H 15 Respiratory Effort Respiratory Pattern Blood Pressure 151/67 H 149/61 H Blood Pressure Mean 95 90 Pulse Ox 92 94 Oxygen Delivery Method Nasal Cannula Nasal Cannula Oxygen Flow Rate (L/min) 2 Positive well nourished, well developed and obese; Negative for cachectic or contractures General Appearance ED: well developed and NAD; Negative for cachectic, contractures, cyanotic, diaphoretic or pallor Nutritional Appearance: obese; Negative for cachectic HEENT Reports moist mucous membranes normocephalic and atraumatic Face and Sinus: Negative for sinus tenderness Teeth and Gingiva: Negative for caries Throat: posterior oropharynx normal Eyes PERRL and EOMs intact bilaterally General Eye ED: Negative for pale conjunctiva or scleral icterus Neck no lymphadenopathy, supple, no meningeal signs and no JVD General: Negative for anterior neck swelling or lymphadenopathy Resp normal respiratory effort and clear to auscultation bilaterally Effort and Inspection: Negative for retractions Auscultation: Negative for rales, rhonchi or wheezes Cardio S1 normal heart sound, S2 normal heart sound and no murmurs Rate: regular rate Rhythm: regular rhythm GI non-tender, non-distended and no masses Inspection: Negative for abdominal distention Auscultation: normoactive bowel sounds Palpation: soft; Negative for tender, guarding, hepatomegaly or splenomegaly Back/Spine no CVA tenderness and normal ROM General Back: Negative for CVA tenderness Cervical Spine: Negative for cervical spine tenderness Thoracic Spine / Upper Back: Negative for thoracic spinal tenderness Lumbar Spine / Lower Back: Negative for lumbar spinal tenderness Sacrum: Negative for tenderness Extremity Negative for normal to inspection Extremity Narrative: Bilateral lower extremity weakness. Bilateral lower extremity numbness. All chronic. Neuro oriented x3 and CN's II-XII intact bilaterally Sensorium / Orientation: alert, oriented to person, oriented to place and oriented to time; Negative for orientation impaired, lethargic or stuporous Motor Exam: strength 5/5 throughout Psych mental status grossly normal Appearance: Negative for other Attitude: No agitated Mood & Affect: Negative for depressed, anxious or tearful Skin General Skin Exam: Negative for jaundice or pallor Lesions: no lesions Rashes: no rashes Trauma: Negative for abrasion or laceration MDM MDM MDM Narrative Medical decision making narrative: 73-year-old male with hypoxia and fever rule out pneumonia versus viral URI versus other etiologies. Screening labs COVID and chest x-ray being obtained. Repeat exam at 12:05 AM unchanged. Fever is improving from 1015 to currently 100. He is awake and alert. He and I and his discussed his test results. Patient is very weak he is unable to stand I will speak to the hospitalist about admission. The current running diagnosis is a viral syndrome. Patient be treated with IV fluids and was already given Tylenol. History & Record Review Discussion w/independent historian: Patient Additional record(s) reviewed:: Prior inpatient record, Prior outpatient record, Prior ED visit and Prior labs Lab Data Attestation: I reviewed the patient's lab results. Lab results narrative: CBC shows a white count of 9. H&H 12.7 and 40. Platelets 207. Electrolytes show gap 7. BUN 23 creatinine 1.61 he has no history of chronic kidney disease. Glucose 175. Lactic acid is normal at 1.4. COVID, flu and RSV negative. Labs: Laboratory Results - last 24 hr 12/10/23 12/10/23 21:50 22:30 WBC 9.0 RBC 4.28 L Hgb 12.7 L Hct 40.2 MCV 93.9 MCH 29.7 MCHC 31.6 L RDW Std Deviation 51.9 H RDW Coeff of [place] 15.0 H Plt Count 207 MPV 9.8 Immature Gran % (Auto) 0.600 Neut % (Auto) 80.9 H Lymph % (Auto) 7.2 L Piatt % (Auto) 10.2 H Eos % (Auto) 0.8 Baso % (Auto) 0.3 Absolute Neuts (auto) 7.3 Absolute Lymphs (auto) 0.65 L Nucleated RBC % 0 Sodium 138 Potassium 4.1 Chloride 105 Carbon Dioxide 26.0 Anion Gap 7 BUN 23 H Creatinine 1.61 H Estim Creat Clear Calc 73.36 Est GFR (MDRD) Af Amer 54 L Est GFR (MDRD) Non-Af 45 L BUN/Creatinine Ratio 14.3 Glucose 175 H Lactic Acid 1.4 Calcium 9.3 Radiography Chest X-Ray - ED: 1 View, Read by ED Physician, Read by Radiologist, Heart, Lungs, Mediastinum, Bony Structures, No Acute Disease and Chronic Changes Diagnostic Testing: Clinical Impression(s) from Imaging Studies Chest X-Ray 12/10/23 22:03 IMPRESSION: Peribronchial thickening suggesting bronchiolitis, correlate clinically. Electronically Signed: Seymour Jeong MD at 22:39 EDT , Chest x-ray, 2 views, AP and lateral, interpreted both by myself and radiologist shows peribronchial thickening. No obvious pneumonia. Discharge Plan Dx/Rx/DC Orders Clinical Impression: Fever, Generalized weakness, Chronic kidney disease, Viral URI, Unable to stand up, History of diabetes mellitus, Hypoxia Disposition Disposition: Acute Care [facility]
[2023-12-10 22:29] VITALS: BP 167/72; PULSE 88; RESP 19; TEMP 37.8; O2SAT 93
[2023-12-10 23:00] VITALS: BP 151/67; PULSE 87; RESP 19; TEMP 37.7; O2SAT 92
[2023-12-10 23:01] LABS: Lactic Acid 1.4 mmol/L (0.4-1.9)
[2023-12-11] VITALS (15 sets, daily range): BP systolic 115–152; BP diastolic 54–98; PULSE 63–86; RESP 15–24; TEMP 36.5–37.7; O2SAT 85–98; BMI 64.1; BMI 64.0
--- NOTE | 2023-12-11 00:12 | PCM.HP.STD ---
HPI - General General Date of Admission: 12/11/23 Date of Service: 12/11/23 Chief Complaint: Dyspnea, cough, congestion, rhinorrhea, N/V HPI Narrative The patient is a 73 y/o M w/ PMHx: Morbid Obesity, JESSICA on CPAP, COPD/Asthma, CKD stage III unclear subtype, HTN, HLD, Anxiety and Depression, Diabetes mellitus type II with chronic neuropathy, GERD, Former tobacco use, CAD, Hx CVA/ICH, PVD, HFpEF, Chronic normocytic anemia who presents to the [facility] ED on 12/10/2023 with history of onset of URI type symptoms starting on Wednesday with fever, chills, rhinorrhea, congestion, dizziness, nausea with occasional dry heaves in addition to cough and occasional brown-colored sputum with worsening fatigue and malaise unfortunately baseline disabled and unable to walk secondary to severe neuropathy wheel chair bound but given significantly worsened status prompted ED evaluation. Patient's was also recently ill with similar symptoms but she improved quickly. Workup in the ED included T101.5 max, heart rate 90, BP 162/58, respiratory rate 25, 88% on room air with most recent repeat vital signs T1 100.1, heart rate 88, BP 167/72, respiratory rate 19, 93% on 2 L nasal cannula, CBC with WBC 9.0, hemoglobin 12.7, MCV 93.9, platelet 207 with lymphopenia, BMP with BUN/creatinine 23/1.61, GFR 45, glucose 175, lactic acid 1.4, chest x-ray with peribronchial thickening suggestive of bronchiolitis, respiratory SARS COVID/influenza/RSV PCR negative. In the ED patient ministered 1000 mg p.o. Tylenol x 1. [facility] Medical History (Updated 12/11/23 @ 00:[address] Kavita Villalobos MD) (HFpEF) heart failure with preserved ejection fraction Abnormality of gait due to impairment of balance Anxiety and depression Arthritis Asthma Atherosclerosis of coronary artery of [place] heart without angina pectoris Back pain Cardiology follow-up encounter Cardiomegaly Chronic venous insufficiency CKD (chronic kidney disease) stage 3, GFR 30-59 ml/min COPD (chronic obstructive pulmonary disease) Dysmetabolic syndrome X Fatty liver Former smoker Gait disorder GERD (gastroesophageal reflux disease) Herpes zoster History of echocardiogram History of edema History of hiatal hernia History of stress test Hx of pilonidal cyst Hx of pulmonary hypertension Hyperlipidemia Hypertension Insulin dependent diabetes mellitus Morbid obesity Numbness of right foot JESSICA on CPAP Osteoporosis Positional vertigo PVD (peripheral vascular disease) Respiratory failure Stroke/cerebrovascular accident (~08/22/17) Suicide attempt Uses wheelchair Home Medications cetirizine 10 mg capsule (Zyrtec) 20 mg PO DAILY allergies 06/20/18 [History Last Taken Unknown] glimepiride 4 mg tablet 4 mg PO BID DM 06/20/18 [History Last Taken Unknown] metformin 500 mg tablet,extended release 24 hr 1,000 mg PO BID DM 06/20/18 [History Last Taken Unknown] atorvastatin 40 mg tablet (Lipitor) 40 mg PO QHS cholesterol 05/14/22 [History Last Taken Unknown] dulaglutide 4.5 mg/0.5 mL subcutaneous pen injector (Trulicity) 4.5 mg subcut NEGRETE DM 05/14/22 [History Last Taken Unknown] gabapentin 300 mg tablet 900 mg PO QHS see PCP 05/14/22 [History Last Taken Unknown] insulin aspart U-100 100 unit/mL (3 mL) subcutaneous pen (Novolog FlexPen U-100 Insulin aspart) 30 unit subcut TID DM 05/14/22 [History Last Taken Unknown] insulin degludec 200 unit/mL (3 mL) subcutaneous pen (Tresiba FlexTouch U-200 insulin) 130 unit subcut QHS DM 05/14/22 [History Last Taken Unknown] pantoprazole 20 mg tablet,delayed release (Protonix) 20 mg PO DAILY GERD 05/14/22 [History Last Taken Unknown] Lactobacillus acidophilus 100 mg (1 billion cell) capsule 100 mmu cells PO DAILY see PCP 06/11/23 [History Last Taken Unknown] fish, borage, flaxseed oils-omega 3,6,9 comb no.1 1,200 mg capsule 2 cap PO BID See PCP 06/11/23 [History Last Taken Unknown] furosemide 40 mg tablet 40 mg PO DAILY Water 06/11/23 [History Last Taken Unknown] gabapentin 300 mg tablet 600 mg PO DAILY see PCP 06/11/23 [History Last Taken Unknown] lorazepam 1 mg tablet 1 mg PO BID anxiety 06/11/23 [History Last Taken Unknown] losartan 100 mg tablet 50 mg PO QHS BP 06/11/23 [History Last Taken Unknown] metoprolol succinate 100 mg tablet,extended release 24 hr 50 mg PO QHS BP 06/11/23 [History Last Taken Unknown] metoprolol succinate 100 mg tablet,extended release 24 hr 100 mg PO DAILY BP 06/11/23 [History Last Taken Unknown] aspirin 81 mg tablet,delayed release 243 mg PO QHS antiplatelet 06/14/23 [History Last Taken 08/05/23] cranberry fruit concentrate 250 mg chewable tablet (Azo Cranberry) 500 mg PO QHS kidney 06/14/23 [History Last Taken Unknown] naproxen 500 mg tablet 500 mg PO QHS Pain 06/14/23 [History Last Taken Unknown] losartan 100 mg tablet 100 mg PO DAILY BP 08/05/23 [History Last Taken Unknown] sulfamethoxazole 400 mg-trimethoprim 80 mg tablet 1 tab PO DAILY Kidney 12/11/23 [History Last Taken Unknown] Allergy/AdvReac Type Severity Reaction Status Date / Time isosorbide dinitrate Allergy Other Verified 12/10/23 21:30 [From Isordil] prednisone Allergy Swelling Verified 12/10/23 21:30 ciprofloxacin AdvReac Intermediate Vomiting Verified 12/10/23 21:30 Tricyclic Antidepressants AdvReac Intermediate blackouts Verified 12/10/23 21:30 and Tricy morphine AdvReac Other Verified 12/10/23 21:30 Family History Mother Hypertension Father Colon cancer Other Family hx of colorectal cancer Surgical History History of cancer surgery History of left heart catheterization (LHC) (~10/1995) Hx of colonoscopy Hx of tracheostomy (~08/2017) Social History household members: spouse Smoking Status: Former smoker how long ago did patient quit smokin alcohol intake: never substance use type: does not use caffeine: No ROS ROS Narrative Admission Review of Systems: CONSTITUTIONAL: No weight loss, + fever, chills, weakness or fatigue. HEENT: + Cough, congestion, rhinorrhea, lightheadedness/dizziness. Eyes: No visual loss, blurred vision, double vision or yellow sclerae. Ears, Nose, Throat: No hearing loss. SKIN: No rash or itching, lesions, wounds. CARDIOVASCULAR: + Lightheadedness/dizziness, chronic lower extremity edema. No chest pain, chest pressure or chest discomfort, palpitations, orthopnea, syncopal events. RESPIRATORY:+ Dyspnea, cough with occasional productive sputum. Wheezing, hemoptysis. GASTROINTESTINAL: + anorexia, nausea, dry heaving/vomiting. No diarrhea, abdominal pain, melena, BRBPR. GENITOURINARY: No dysuria, frequency, urgency or retention. NEUROLOGICAL: + History of CVA/ICH with chronic lower extremity weakness, debility, paresthesias, lightheadedness/dizziness. No syncope, paralysis, change in bowel or bladder control, seizure. MUSCULOSKELETAL: + muscle, back pain, joint pain or stiffness. HEMATOLOGIC: + Chronic anemia. No bleeding or bruising. LYMPHATICS: No enlarged nodes. No history of splenectomy. PSYCHIATRIC: + History of anxiety and depression. ENDOCRINOLOGIC: No reports of sweating, cold or heat intolerance. No polyuria or polydipsia. ALLERGIES: + History of asthma and allergic rhinitis. Vital Signs Vital Signs Vital Signs: 12/10/23 21:23 12/10/23 21:23 12/10/23 21:31 Temperature 101.5 F H Temperature Source Oral Pulse Rate 90 Respiratory Rate 25 H Respiratory Effort Short of Breath Respiratory Pattern Tachypnea Blood Pressure 162/58 H Blood Pressure Mean 92 Pulse Ox 88 95 Oxygen Delivery Method Room Air Nasal Cannula Oxygen Flow Rate (L/min) 2 12/10/23 21:33 12/10/23 22:29 12/10/23 22:22 Temperature 101.5 F H 100.1 F H Temperature Source Oral Oral Pulse Rate 92 88 89 Respiratory Rate 22 H 19 H 22 H Respiratory Effort Respiratory Pattern Blood Pressure 164/65 H 167/72 H 167/72 H Blood Pressure Mean 98 103 103 Pulse Ox 95 93 91 Oxygen Delivery Method Nasal Cannula Nasal Cannula Nasal Cannula Oxygen Flow Rate (L/min) 2 2 2 12/10/23 23:00 12/11/23 00:00 Temperature 100 F H 100 F H Temperature Source Oral Oral Pulse Rate 87 86 Respiratory Rate 19 H 15 Respiratory Effort Respiratory Pattern Blood Pressure 151/67 H 149/61 H Blood Pressure Mean 95 90 Pulse Ox 92 94 Oxygen Delivery Method Nasal Cannula Nasal Cannula Oxygen Flow Rate (L/min) 2 Weight Weight: 458 lb 1.929 oz Body Mass Index (BMI) 65.7 Physical Exam Narrative Physical Examination: General: Awake, alert, oriented x 3 and cooperative, laying in the ED bed, fatigued, ill-appearing, flushed. Skin: Flushed color, normal turgor, no icterus, no cyanosis. HEENT: AT/NC, EOMI, PERRLA, dry MM, no obvious carotid bruits or JVD noted; however extremely thickened neck makes evaluation difficult. Lungs: Significantly diminished, distant breath sounds, greater bases, mildly increased respiratory rate but no distress, no appreciated rales, ronchi or wheezing. Heart: Regular rate and rhythm; no gallop, rub audible. Abdomen: Soft, morbidly obese, NTTP, distant BS, difficult to discern distention and HSM given habitus. Extremities: No cyanosis, no clubbing, chronic bilateral lower extremity distal edema present. Neurological: Patient awake, alert, oriented as noted, cognitive function intact; pupils equally reactive to light and accommodation, cranial nerves grossly normal, moving all 4 extremities although significantly debilitated with chronic lower extremity weakness/near wheelchair-bound status although able to help with some transfers although recently unable given weakness, chronic paresthesias, strength severely globally decreased secondary to acute presentation compounded by underlying comorbidities. Psychiatric: Affect appears flat, fatigued, ill-appearing, no acute evidence of depressive or anxiety feelings but does have underlying history. Results Lab / Micro Data 12/10/23 21:50 12/10/23 21:50 Labs: Laboratory Results - last 24 hr 12/10/23 21:50: WBC 9.0, RBC 4.28 L, Hgb 12.7 L, Hct 40.2, MCV 93.9, MCH 29.7, MCHC 31.6 L, RDW Std Deviation 51.9 H, RDW Coeff of Kenyatta 15.0 H, Plt Count 207, MPV 9.8, Immature Gran % (Auto) 0.600, Neut % (Auto) 80.9 H, Lymph % (Auto) 7.2 L, [place] % (Auto) 10.2 H, Eos % (Auto) 0.8, Baso % (Auto) 0.3, Absolute Neuts (auto) 7.3, Absolute Lymphs (auto) 0.65 L, Nucleated RBC % 0, Sodium 138, Potassium 4.1, Chloride 105, Carbon Dioxide 26.0, Anion Gap 7, BUN 23 H, Creatinine 1.61 H, Estim Creat Clear Calc 73.36, Est GFR (MDRD) Af Amer 54 L, Est GFR (MDRD) Non-Af 45 L, BUN/Creatinine Ratio 14.3, Glucose 175 H, Calcium 9.3 12/10/23 22:30: Lactic Acid 1.4 Micro: Microbiology 12/10/23 21:45 Mucosa - Nose SARS-CoV-2, Influenza & RSV (PCR) - Final Imaging Radiology Impression Chest X-Ray 12/10/23 22:03 IMPRESSION: Peribronchial thickening suggesting bronchiolitis, correlate clinically. Electronically Signed: Seymour Jeong MD at 22:39 EDT , Assessment & Plan Assessment/Plan (1) Viral URI: PLAN: Plan The patient is a 73 y/o M w/ PMHx: Morbid Obesity, JESSICA on CPAP, COPD/Asthma, CKD stage III unclear subtype, HTN, HLD, Anxiety and Depression, Diabetes mellitus type II with chronic neuropathy, GERD, Former tobacco use, CAD, Hx CVA/ICH, PVD, HFpEF, Chronic normocytic anemia who presents to the [facility] ED on 12/10/2023 with history of onset of URI type symptoms starting on Wednesday with fever, rhinorrhea, congestion, dizziness, nausea with occasional dry heaves in addition to cough and occasional brown-colored sputum with worsening fatigue and malaise unfortunately baseline disabled and unable to walk secondary to severe neuropathy wheel chair bound but given significantly worsened status prompted ED evaluation. Patient's was also recently ill with similar symptoms but she improved quickly. #1. Debility, Adult FTT secondary to Acute hypoxia with bronchiolitis secondary to Acute Viral Syndrome, unclear specific type complicated by underlying Chronic COPD/Asthma: Will admit to MS, maintain on oxygen with wean as tolerated to room air, continue ATC duonebs, PRN albuterol, HOB, IS parameters, will obtain sputum Cx, respiratory viral panel, procalcitonin. If work-up concerning for bacterial etiology will add abx regimen. PT/OT/CM consulted for discharge planning. #2. HFpEF: 06/07/2023 echocardiogram with LV normal size, LV systolic function normal, EF 53? percent, grade 1 LV diastolic dysfunction, mildly dilated LA, visualized aorta dilated with maximal dimension 4.1 cm, no significant valvular abnormality, continue aspirin, statin, metoprolol, losartan, Lasix regimen, judicious hydration if necessary. #3. Hypertension: Continue home regimen including metoprolol, losartan, Lasix, PRN hydralazine. #4. Hyperlipidemia: Will continuation of statin therapy. #5. Anxiety and depression: We will continue patient home low-dose lorazepam regimen, clarifying if on other agents. #6. Diabetes mellitus type II with chronic neuropathy: Hold oral home regimen, continue home insulin regimen, ADA diet, accu checks w/ ISS, continue home gabapentin regimen. #7. Allergic rhinitis: We will continue patient home cetirizine home regimen. #8. Chronic normocytic anemia: Admission hemoglobin 12.7, MCV 93.9, baseline hemoglobin 12-13, stable, continue to trend. #9. CAD: We will continue patient home aspirin, statin, metoprolol, losartan home regimen. #10. History CVA/ICH: Prolonged admission OSH, ended up with tracheostomy, unclear surgical intervention given ICH, chronic deficits with gait, ambulation, paresthesias to the extremities. PT/OT/CM consulted for discharge planning. #11. Chronic Kidney Disease Stage III, unclear subtype per GFR trend: Admission BUN/Cr 23/1.61, GFR 45, baseline renal function 1.3-1.6, most recently prior to this remotely 05/14/2022 creatinine 1.61, repeat BMP in AM. #12. Morbid Obesity: Weight loss and lifestyle changes encouraged. #13. Former tobacco use: Encourage continued tobacco cessation. #14. GERD: We will continue patient on PPI. #15. JESSICA: CPAP nightly. #16. DVT prophylaxis: Lovenox. #17. CODE status: Patient does not have healthcare power of workers compensation attorney or living will in place but he notes his who is present would be his decision-maker if he was unable. Discussed CODE status at length including difference between FULL code, DNR-CCA and DNR-CC status. Following discussions about the differences in these status, requested Full Code status. Advanced Care Planning Face to Face Time: 16 minutes. Charges/Coding Visit Charges Inpatient E&M: 99937 Init Hosp L3 Procedures Hospitalists Procedures: 48560 Advncd Care Plan 30 Min
[2023-12-11] MEDS: 0.9% Normal Saline (500mL Bag) 500 ML 999 ML IV (00:20)
[2023-12-11 01:35] LABS: Procalcitonin 0.28 ng/mL (0.00-0.09)
[2023-12-11] MEDS: 0.9% Normal Saline (1000mL) 1,000 ML 75 ML IV (02:25)
[2023-12-11] MEDS: 0.9% Saline Lock 10 ML Syringe IV (02:25)
[2023-12-11 06:38] LABS: Absolute Lymphocyte Count 1.26 X10^3/uL (0.83-4.51); Absolute Neutrophil Count 6.9 X10^3/uL (2.0-7.7); Basophil# 0.04 X10^3/uL; Basophil% 0.4 % (0-1); Eosinophil# 0.06 X10^3/uL; Eosinophils% 0.7 % (0-5); Hematocrit 37.8 % (40-54); Lymphocyte # 1.26 X10^3/ul (0.83-4.51); Lymphocyte % 13.7 % (19-41); Mean Corp Hgb Conc 31.7 g/dL (32-36); Mean Corpuscular Hgb 29.7 pg (27.0-32.0); Mean Corpuscular Volume 93.6 fL (80-94); Mean Platelet Vol. 9.6 fl (6.2-12.0); Monocyte% 9.8 % (0-10); NRBC Flagged by Analyzer 0 % (0-5); Neutrophil # 6.91 X10^3/uL (2.7-7.7); Neutrophil % 75.1 % (47-70); Platelet Count 193 K/mm3 (150-450); RBC Distribution Width CV 14.9 % (11.6-14.6); RBC Distribution Width SD 52.4 fl (35.1-43.9); Red Blood Count 4.04 M/mm3 (4.6-6.2); White Blood Count 9.2 K/mm3 (4.4-11.0)
[2023-12-11 07:04] LABS: ALB/GLOB Ratio 0.9 RATIO (0.9-2.4); AST(SGOT) 21 U/L (15-37); Alanine Aminotransfer ALT/SGPT 20 U/L (16-61); Albumin, Serum 2.8 g/dL (3.2-5.0); Alkaline Phosphatase 44 U/L (45-117); Anion Gap 5 (5-15); BUN 21 mg/dL (7-18); BUN/Creat Ratio 14.9 RATIO (10-20); Calcium,Total 8.6 mg/dL (8.5-10.1); Chloride 108 mmol/L (98-107); Creatinine, Serum 1.41 mg/dL (0.70-1.30); EST Glomerular Filtration Rate 52 mL/min (>60); Est Glom Filt Rate - Afr Amer 63 mL/min (>60); Estimated Creatinine Clearance 82.47 ml/min; Globulin 3.2 g/dL (2.2-4.2); Glucose 53 mg/dL (74-106); Potassium 3.5 mmol/L (3.5-5.1); Sodium Level 139 mmol/L (136-145)
[2023-12-11 07:09] LABS: Bedside Glucose 96 mg/dL (74-106)
[2023-12-11 07:09] LABS: Bedside Glucose 44 mg/dL (74-106)
[2023-12-11] MEDS: Ipratropium/Albuterol Sulfate 3 ML AMPUL.NEB INHALATION ×4 (07:26→19:46)
[2023-12-11] MEDS: LORazepam 1 MG Tablet PO ×2 (09:39→21:04)
[2023-12-11] MEDS: Azithromycin 500 MG in Dextrose 5%-Water (250mL Bag) 250 ML 250 MG IV (09:39)
[2023-12-11] MEDS: Gabapentin 600 MG Tablet PO (09:39)
[2023-12-11] MEDS: Enoxaparin 40 MG/0.4 ML Syringe SC ×2 (09:39→21:04)
[2023-12-11] MEDS: Pantoprazole Sodium 20 MG Tablet PO (09:40)
[2023-12-11] MEDS: Furosemide 40 MG Tablet PO (09:40)
[2023-12-11] MEDS: Loratadine 10 MG Tablet 20 MG PO (09:40)
[2023-12-11] MEDS: Metoprolol(XL)Succ 100 MG Tablet PO (09:40)
[2023-12-11] MEDS: Losartan Potassium 100 MG Tablet PO (09:41)
--- NOTE | 2023-12-11 10:42 | CASEMGMT ---
CARYN JACKSON Assessment Face to Face with patient for initial transition planning/care coordination assessment. CARYN JACKSON introduced self and role at [facility], pt voices understanding. Pt is A&Ox4 and is resting comfortably in bed and is calm. Pt is on RA currently. Care providers, pharmacy, and demographics verified. Admitting dx: Hypoxia, Viral Syndrome, Adult FTT PCP: [facility] Specialists: Dr. Addison ([facility] Urologist) Preferred Pharmacy: [facility] Insurance: [facility] A/B, [facility] Supp Prescription Benefit: Yes LNOK: Chely Ritu (W) Living Arrangements: Pt lives with his in a 2 story home with a flat entrance with a chair lift. ADLs/IADLs: Pt helps the pt Transportation: Self, DME: Pt states that he uses a cane. Walker at home but does not use. BGM and enough supplies to check BS. CPAP at night. Lift chair. Power WC. Walk in shower with GB and seat. HHC/SNF: [facility] in 2018 and HHC (states agency was located in [place]) afterwards. Pt?s goal: Home no needs Plan: 6-Click is 18. Therapy evals pending. Pt denies the need for HHC or OP therapy at this time. Pt states I still work. Pt states that his takes good care of him. Pt states that he wishes to DC home once medically ready and states that he feels safe doing so. CM to follow for safe DC from [facility]. Montez Pascual RN, CM
[2023-12-11] MEDS: Ceftriaxone 1 GM/50 ML BAG IV (11:11)
--- NOTE | 2023-12-11 11:20 | PCM.PN.HOSP ---
Reason for Visit Reason for Visit: Diagnoses Acute upper respiratory infection, unspecified (12/11/23) Subjective Subjective Patient admitted overnight for viral URI type symptoms with recent poor p.o. intake and weakness from baseline. Seen at bedside later this morning. Patient was sitting up fairly comfortably in bed, conversing normally, no acute distress. Stated that he felt moderately improved from admission after receiving IV fluids. He was able to eat a small breakfast morning and tolerated this without issue. No episodes of nausea or vomiting since admission. Denies any fevers or chills this morning. Had not worked with physical therapy yet when I saw him. No other acute concerns at this time. Objective Data Objective Data Vital Signs: Vital Signs Temp Pulse Resp BP Pulse Ox O2 Del Method O2 Flow Rate 97.7 F L 63 18 121/62 H 97 Room Air 2 12/11/23 09:25 12/11/23 09:40 12/11/23 09:25 12/11/23 09:25 12/11/23 09:25 12/11/23 09:30 12/11/23 09:25 Oxygen Flow Rate (L/min) 2 Oxygen Delivery Method Room Air Weight: 202.9 kg Body Mass Index (BMI) 64.0 Intake & Output: Intake and Output for Last 24 Hours 12/09/23 12/10/23 12/11/23 23:59 23:59 23:59 Intake Total 755 / 755 Balance 755 / 755 Lab / Micro Data 12/11/23 06:23 12/11/23 06:23 Labs: Laboratory Results - last 24 hr 12/10/23 21:50: WBC 9.0, RBC 4.28 L, Hgb 12.7 L, Hct 40.2, MCV 93.9, MCH 29.7, MCHC 31.6 L, RDW Std Deviation 51.9 H, RDW Coeff of Kenyatta 15.0 H, Plt Count 207, MPV 9.8, Immature Gran % (Auto) 0.600, Neut % (Auto) 80.9 H, Lymph % (Auto) 7.2 L, [place] % (Auto) 10.2 H, Eos % (Auto) 0.8, Baso % (Auto) 0.3, Absolute Neuts (auto) 7.3, Absolute Lymphs (auto) 0.65 L, Nucleated RBC % 0, Sodium 138, Potassium 4.1, Chloride 105, Carbon Dioxide 26.0, Anion Gap 7, BUN 23 H, Creatinine 1.61 H, Estim Creat Clear Calc 73.36, Est GFR (MDRD) Af Amer 54 L, Est GFR (MDRD) Non-Af 45 L, BUN/Creatinine Ratio 14.3, Glucose 175 H, Calcium 9.3 12/10/23 22:30: Lactic Acid 1.4 12/11/23 00:22: Procalcitonin 0.28 H 12/11/23 06:20: POC Glucose 44 L* 12/11/23 06:23: WBC 9.2, RBC 4.04 L, Hgb 12.0 L, Hct 37.8 L, MCV 93.6, MCH 29.7, MCHC 31.7 L, RDW Std Deviation 52.4 H, RDW Coeff of Kenyatta 14.9 H, Plt Count 193, MPV 9.6, Immature Gran % (Auto) 0.300, Neut % (Auto) 75.1 H, Lymph % (Auto) 13.7 L, [place] % (Auto) 9.8, Eos % (Auto) 0.7, Baso % (Auto) 0.4, Absolute Neuts (auto) 6.9, Absolute Lymphs (auto) 1.26, Nucleated RBC % 0, Sodium 139, Potassium 3.5, Chloride 108 H, Carbon Dioxide 26.0, Anion Gap 5, BUN 21 H, Creatinine 1.41 H, Estim Creat Clear Calc 82.47, Est GFR (MDRD) Af Amer 63, Est GFR (MDRD) Non-Af 52 L, BUN/Creatinine Ratio 14.9, Glucose 53 L 12/11/23 06:23: Glucose Cancelled, Calcium 8.6, Total Bilirubin 0.80, AST 21, ALT 20, Alkaline Phosphatase 44 L, Total Protein 6.0 L, Albumin 2.8 L, Globulin 3.2, Albumin/Globulin Ratio 0.9 12/11/23 06:50: POC Glucose 96 Micro: Microbiology 12/11/23 02:31 Mucosa - Nasopharyngeal Respiratory Panel (PCR) - Final 12/10/23 21:45 Mucosa - Nose SARS-CoV-2, Influenza & RSV (PCR) - Final Radiography Diagnostic Testing: Radiology Impression Chest X-Ray 12/10/23 22:03 IMPRESSION: Peribronchial thickening suggesting bronchiolitis, correlate clinically. Electronically Signed: Seymour Jeong MD at 22:39 EDT , Physical Exam Const alert, oriented x3 and no apparent distress Constitutional Narrative: Pleasant elderly male, super morbidly obese, laying back comfortably in bed, conversing normally, no acute distress. General Appearance: cooperative and comfortable HEENT normocephalic, head/scalp atraumatic, hearing grossly normal bilaterally and nasal mucous membranes and turbinates normal Eyes PERRL, EOMs intact bilaterally and conjunctivae normal Neck full ROM Chest inspection of chest normal Resp normal respiratory effort and no use of accessory muscles Resp Narrative: Breathing comfortably on 2 L nasal cannula. Difficult to auscultate breath sounds due to body habitus. Cardio regular rate, regular rhythm, no murmurs and peripheral pulses 2+ throughout GI normal to inspection, nondistended, normoactive bowel sounds, soft to palpation, non-tender and non-distended Back/Spine normal ROM Extremity normal to inspection, full ROM and no pedal edema Skin no rashes or lesions noted Neuro moves all extremities and no focal motor deficits Speech: speech normal Psych mental status grossly normal Assessment & Plan Assessment/Plan (1) Acute bronchiolitis: (2) Weakness: PLAN: Plan Patient is a 73-year-old male who presented to [facility] ED on 12/11/2023 with viral URI symptoms, poor p.o. intake and worsening weakness. 1. Acute bronchiolitis; acute hypoxia, resolved Chest x-ray on admit showed bronchial thickening suggesting bronchiolitis. COVID/flu/RSV negative, respiratory PCR panel negative. Patient required up to 4 L nasal cannula in the ED, weaned to room air by hospital day 2. Mild leukocytosis, procalcitonin 0.28, febrile to 101.5F on admit. Did not meet sepsis criteria. ? Will empirically treat for CAP with IV ceftriaxone and IV azithromycin for now. Trend daily CBC. Follow-up sputum culture. 2. Acute on chronic debility ? PT/OT/case management following. Patient notably has been wheelchair-bound for about 20 years, lives at home with his . Mildly weaker than his baseline on admit. Likely okay for home with home health care on discharge once medically ready. 3. GRISELDA versus CKD stage III ? Creatinine 1.61 on admit, down trended to 1.41 on hospital day 2 after IV fluids. No previous creatinine values since 2021, baseline unclear. Trend daily BMP and urine output. 4. Type 2 diabetes mellitus with chronic neuropathy ? Home regimen of insulin degludec 130 units at night, Novolog 30 units with meals, metformin 1000 mg twice daily, glimepiride 4 mg twice daily, Trulicity 4.5 mg weekly. Home insulin regimen with sliding scale continued on admission, home oral medications held. Patient had episode of hypoglycemia on morning of 12/10 and has had decreased p.o. intake recently. Will dose reduce to Lantus 50 units twice daily, Humalog 15 units with meals plus sliding scale, adjust as needed. Chronic medical conditions: ? Morbid obesity: BMI 64 on admit. Complicates hospital course, care and prognosis. ? HFpEF, CAD, hypertension, hyperlipidemia: Continue home Toprol, aspirin, statin. Holding home losartan and Lasix in setting of possible GRISELDA and borderline low blood pressures. ? Anxiety and depression: Stable. Continue home Ativan 1 mg twice daily scheduled. ? Allergic rhinitis: Continue home cetirizine. ? Chronic normocytic anemia: Hemoglobin 12.7 on admit, stable at baseline. ? History of CVA with ICH: Apparently occurred around 20 years ago. Required tracheostomy at that time, decannulated after several months. Chronic deficits with gait, ambulation, paresthesias to extremities and patient has been wheelchair-bound since then. ? Former tobacco use: Encouraged continued cessation. ? GERD: Continue home PPI. ? JESSICA: Continue home CPAP. DVT prophylaxis: Lovenox twice daily CODE STATUS: Full code, verified Expected disposition: Home with home health care, 1 to 2 days Total clinical time spent by myself addressing the patient's medical issues, reviewing all the data, and collaborating with patient's care team: 35 minutes. Charges/Coding Visit Charges Inpatient E&M: 22881 Subs Hosp L2
[2023-12-11 11:42] LABS: Bedside Glucose 186 mg/dL (74-106)
[2023-12-11 16:55] LABS: Bedside Glucose 121 mg/dL (74-106)
[2023-12-11] MEDS: Gabapentin 300 MG Capsule 900 MG PO (21:04)
[2023-12-11] MEDS: Atorvastatin Calcium 40 MG Tablet PO (21:04)
[2023-12-11] MEDS: Aspirin E.C. 81 MG Tablet PO (21:04)
[2023-12-11] MEDS: Metoprolol(XL)Succ 50 MG Tablet PO (21:06)
[2023-12-11 22:53] LABS: Bedside Glucose 133 mg/dL (74-106)
[2023-12-11 23:01] LABS: Bedside Glucose 130 mg/dL (74-106)
[2023-12-12] VITALS (7 sets, daily range): BP systolic 126–158; BP diastolic 62–64; PULSE 67–74; RESP 18–24; TEMP 36.6–37; O2SAT 88–93; BMI 63.6
[2023-12-12 07:14] LABS: Bedside Glucose 143 mg/dL (74-106)
[2023-12-12] MEDS: Ipratropium/Albuterol Sulfate 3 ML AMPUL.NEB INHALATION ×2 (07:27→11:23)
[2023-12-12] MEDS: Pantoprazole Sodium 20 MG Tablet PO (08:03)
[2023-12-12] MEDS: 0.9% Saline Lock 10 ML Syringe IV (08:03)
[2023-12-12] MEDS: Ondansetron 4 MG/2 ML Vial IV (08:03)
--- NOTE | 2023-12-12 08:33 | NURSING ---
Pt requested to wrap his lower extremities in wraps from home rather than ordered GHANSHYAM wraps. This RN applied wraps according to how pt applies at home with home wraps and tape.
[2023-12-12 08:35] LABS: Anion Gap 5 (5-15); BUN 22 mg/dL (7-18); BUN/Creat Ratio 16.8 RATIO (10-20); Calcium,Total 8.6 mg/dL (8.5-10.1); Chloride 109 mmol/L (98-107); Creatinine, Serum 1.31 mg/dL (0.70-1.30); EST Glomerular Filtration Rate 57 mL/min (>60); Est Glom Filt Rate - Afr Amer 69 mL/min (>60); Estimated Creatinine Clearance 88.45 ml/min; Glucose 155 mg/dL (74-106); Sodium Level 140 mmol/L (136-145)
[2023-12-12] MEDS: Azithromycin 500 MG in Dextrose 5%-Water (250mL Bag) 250 ML 250 MG IV (09:35)
[2023-12-12] MEDS: Gabapentin 600 MG Tablet PO (09:35)
[2023-12-12] MEDS: LORazepam 1 MG Tablet PO (09:35)
[2023-12-12] MEDS: Metoprolol(XL)Succ 100 MG Tablet PO (09:36)
[2023-12-12] MEDS: Loratadine 10 MG Tablet 20 MG PO (09:37)
[2023-12-12] MEDS: Enoxaparin 40 MG/0.4 ML Syringe SC (09:37)
[2023-12-12] MEDS: guaiFENesin 10 ML UDC (200MG/10ML) 20 ML PO (09:46)
--- NOTE | 2023-12-12 10:30 | DCINST_ITS ---
Discharge Instructions Diet Discharge Diet: No restrictions Activity Discharge Activity: No Restrictions Weight Bearing Status: Full weight bearing Follow Up Care Test Results: Test results from this visit will be discussed in further detail at your follow- up appointment, if applicable. Discharge Plan Admission Admit Date/Time: 12/11/23 00:16 Primary Reason for Your Visit: upper respiratory symptoms, weakness Attending Provider: Joey Russell Primary Care Provider: Jason Moffett Consulting Providers: Kavita Villalobos Discharge Orders/Prescriptions Prescriptions: New azithromycin 500 mg tablet 500 mg PO DAILY 3 Days Qty: 3 0RF Continued metoprolol succinate 100 mg tablet extended release 24 hr 100 mg PO DAILY metoprolol succinate 100 mg tablet extended release 24 hr 50 mg PO QHS losartan 100 mg tablet 50 mg PO QHS furosemide 40 mg tablet 40 mg PO DAILY Lactobacillus acidophilus 100 mg (1 billion cell) capsule 100 mmu cells PO DAILY fish,bora,flax oils-om3,6,9no1 1,200 mg capsule 2 cap PO BID Azo Cranberry 250 mg tablet,chewable 500 mg PO QHS lorazepam 1 mg tablet 1 mg PO BID glimepiride 4 MG tablet 4 mg PO BID metformin 500 MG tablet 1,000 mg PO BID Zyrtec 10 MG capsule 20 mg PO DAILY aspirin 81 mg tablet,delayed release (DR/EC) 243 mg PO QHS naproxen 500 mg tablet 500 mg PO QHS atorvastatin [Lipitor] 40 mg Tablet 40 mg PO QHS pantoprazole [Protonix] 20 mg Tablet,Delayed Release (Dr/Ec) 20 mg PO DAILY insulin aspart U-100 [Novolog FlexPen U-100 Insulin] 100 unit/mL (3 mL) Insulin Pen 30 unit SUBCUT TID gabapentin 300 mg Tablet 900 mg PO QHS insulin degludec [Tresiba FlexTouch U-200] 200 unit/mL (3 mL) Insulin Pen 130 unit SUBCUT QHS Trulicity 4.5 mg/0.5 mL Pen Injector 4.5 mg SUBCUT NEGRETE Rx Instructions: SUNDAYS gabapentin 300 mg tablet 600 mg PO DAILY losartan 100 mg tablet 100 mg PO DAILY sulfamethoxazole-trimethoprim 400-80 mg tablet 1 tab PO DAILY Referrals / Follow Up: Jason Moffett DO [Primary Care Provider] - Disposition Disposition (needs filled in before D/C Order can be placed): Home, Self Care
--- NOTE | 2023-12-12 10:34 | PCM.DC.SUM ---
Providers Date of Admission: 12/11/23 Date of Discharge: 12/12/23 Primary Care Physician: Dr. Jason Moffett DO Reason For Visit: HYPOXIA, VIRAL SYNDROME, ADULT FTT Diagnosis Discharge Diagnosis (1) Acute bronchiolitis: Status: Acute Code(s): J21.9 - Acute bronchiolitis, unspecified (2) Weakness: Status: Acute Code(s): R53.1 - Weakness Medications at Discharge Home Medications cetirizine 10 mg capsule (Zyrtec) 20 mg PO DAILY allergies 06/20/18 glimepiride 4 mg tablet 4 mg PO BID DM 06/20/18 metformin 500 mg tablet,extended release 24 hr 1,000 mg PO BID DM 06/20/18 atorvastatin 40 mg tablet (Lipitor) 40 mg PO QHS cholesterol 05/14/22 dulaglutide 4.5 mg/0.5 mL subcutaneous pen injector (Trulicity) 4.5 mg subcut NEGRETE DM 05/14/22 gabapentin 300 mg tablet 900 mg PO QHS see PCP 05/14/22 insulin aspart U-100 100 unit/mL (3 mL) subcutaneous pen (Novolog FlexPen U-100 Insulin aspart) 30 unit subcut TID DM 05/14/22 insulin degludec 200 unit/mL (3 mL) subcutaneous pen (Tresiba FlexTouch U-200 insulin) 130 unit subcut QHS DM 05/14/22 pantoprazole 20 mg tablet,delayed release (Protonix) 20 mg PO DAILY GERD 05/14/22 Lactobacillus acidophilus 100 mg (1 billion cell) capsule 100 mmu cells PO DAILY see PCP 06/11/23 fish, borage, flaxseed oils-omega 3,6,9 comb no.1 1,200 mg capsule 2 cap PO BID See PCP 06/11/23 furosemide 40 mg tablet 40 mg PO DAILY Water 06/11/23 gabapentin 300 mg tablet 600 mg PO DAILY see PCP 06/11/23 lorazepam 1 mg tablet 1 mg PO BID anxiety 06/11/23 losartan 100 mg tablet 50 mg PO QHS BP 06/11/23 metoprolol succinate 100 mg tablet,extended release 24 hr 50 mg PO QHS BP 06/11/23 metoprolol succinate 100 mg tablet,extended release 24 hr 100 mg PO DAILY BP 06/11/23 aspirin 81 mg tablet,delayed release 243 mg PO QHS antiplatelet 06/14/23 cranberry fruit concentrate 250 mg chewable tablet (Azo Cranberry) 500 mg PO QHS kidney 06/14/23 naproxen 500 mg tablet 500 mg PO QHS Pain 06/14/23 losartan 100 mg tablet 100 mg PO DAILY BP 08/05/23 sulfamethoxazole 400 mg-trimethoprim 80 mg tablet 1 tab PO DAILY Kidney 12/11/23 azithromycin 500 mg tablet 500 mg PO DAILY 3 days #3 tabs 12/12/23 Hospital Course Operations None Procedures - (Chest x-ray) Summary of Care Provided Minutes Spent on Discharge: 35 Hospital Course: Patient is a 73-year-old male who presented to [facility] ED on 12/11/2023 with viral URI symptoms, poor p.o. intake and worsening weakness. Hospital course as noted below. Patient discharged home with no therapy needs in stable condition on 12/11. 1. Acute bronchiolitis; acute hypoxia, resolved Chest x-ray on admit showed bronchial thickening suggesting bronchiolitis. COVID/flu/RSV negative, respiratory PCR panel negative. Patient required up to 4 L nasal cannula in the ED, weaned to room air by hospital day 2. Mild leukocytosis, procalcitonin 0.28, febrile to 101.5F on admit. Did not meet sepsis criteria. ? Treated empirically for CAP with IV ceftriaxone and IV azithromycin while inpatient. Will discharge on p.o. azithromycin 5 mg daily to complete 5-day course of antibiotics total, stop date 12/14. 2. Acute on chronic debility ? PT/OT/case management followed. Patient notably has been wheelchair-bound for about 20 years, lives at home with his . Noted that he felt mildly weaker than his baseline on admit. However, he did well with therapy on hospital day 2 and was okay for discharge home with no therapy needs on 12/11. 3. 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 Creatinine 1.61 on admit, downtrended to 1.41 on hospital day 2 after IV fluids. No previous creatinine values since 2021, baseline unclear. Creatinine 1.31 on day of discharge. Had good urine output throughout hospitalization. Outpatient follow-up. 4. 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 Home insulin regimen with sliding scale continued on admission, home oral medications held. Patient had episode of hypoglycemia on morning of 12/10 and has had decreased p.o. intake recently. Dose reduced to Lantus 50 units twice daily, Humalog 15 units with meals plus sliding scale with stabilization of blood sugars. ? Okay to resume home regimen on discharge. Chronic medical conditions: ? Morbid obesity: BMI 64 on admit. Complicates hospital course, care and prognosis. ? HFpEF, CAD, hypertension, hyperlipidemia: Continue home Toprol, aspirin, statin. Home Lasix and losartan were held during hospitalization given concern for GRISELDA and borderline low blood pressures. Blood pressures mildly elevated and patient euvolemic on discharge, okay to resume home Lasix and losartan. Holding home losartan and Lasix in setting of possible GRISELDA and borderline low blood pressures. ? Anxiety and depression: Stable. Continue home Ativan 1 mg twice daily scheduled. ? Allergic rhinitis: Continue home cetirizine. ? Chronic normocytic anemia: Hemoglobin 12.7 on admit, stable at baseline. ? History of CVA with ICH: Apparently occurred around 20 years ago. Required tracheostomy at that time, decannulated after several months. Chronic deficits with gait, ambulation, paresthesias to extremities and patient has been wheelchair-bound since then. ? Former tobacco use: Encouraged continued cessation. ? GERD: Continue home PPI. ? JESSICA: Continue home CPAP. Total clinical time spent by myself addressing the patient's medical issues, reviewing all the data, and collaborating with patient's care team: 35 minutes. Physical Exam Const alert, oriented x3 and no apparent distress Constitutional Narrative: Pleasant elderly male, super morbidly obese, laying back comfortably in bed, conversing normally, no acute distress. General Appearance: cooperative and comfortable HEENT normocephalic, head/scalp atraumatic, hearing grossly normal bilaterally and nasal mucous membranes and turbinates normal Eyes PERRL, EOMs intact bilaterally and conjunctivae normal Neck full ROM Chest inspection of chest normal Resp normal respiratory effort and no use of accessory muscles Resp Narrative: Breathing comfortably on 2 L nasal cannula. Difficult to auscultate breath sounds due to body habitus. Cardio regular rate, regular rhythm, no murmurs and peripheral pulses 2+ throughout GI normal to inspection, nondistended, normoactive bowel sounds, soft to palpation, non-tender and non-distended Back/Spine normal ROM Extremity normal to inspection, full ROM and no pedal edema Skin no rashes or lesions noted Neuro moves all extremities and no focal motor deficits Speech: speech normal Psych mental status grossly normal Weight / BMI Weight Weight: 201.8 kg Body Mass Index (BMI) 63.6 ABG / Lab / Microbiology Data 12/11/23 06:23 12/12/23 08:00 Laboratory: Laboratory Results - last 24 hr 12/11/23 11:12: POC Glucose 186 H 12/11/23 16:14: POC Glucose 121 H 12/11/23 20:55: POC Glucose 133 H 12/11/23 22:43: POC Glucose 130 H 12/12/23 06:37: POC Glucose 143 H 12/12/23 08:00: Sodium 140, Potassium 4.0, Chloride 109 H, Carbon Dioxide 26.0, Anion Gap 5, BUN 22 H, Creatinine 1.31 H, Estim Creat Clear Calc 88.45, Est GFR (MDRD) Af Amer 69, Est GFR (MDRD) Non-Af 57 L, BUN/Creatinine Ratio 16.8, Glucose 155 H, Calcium 8.6 Microbiology: Microbiology 12/11/23 02:31 Mucosa - Nasopharyngeal Respiratory Panel (PCR) - Final 12/10/23 21:45 Mucosa - Nose SARS-CoV-2, Influenza & RSV (PCR) - Final D/C Instructions Discharge Diet: No restrictions Weight Bearing Status: Full weight bearing Meaningful Use Info Meaningful Use Diagnoses (Choose all that apply): None applicable Discharge Plan Admission Admit Date/Time: 12/11/23 00:16 Primary Reason for Your Visit: upper respiratory symptoms, weakness Attending Provider: Joey Russell Primary Care Provider: Jason Moffett Consulting Providers: Kavita Villalobos Discharge Orders/Prescriptions Prescriptions: New azithromycin 500 mg tablet 500 mg PO DAILY 3 Days Qty: 3 0RF Continued metoprolol succinate 100 mg tablet extended release 24 hr 100 mg PO DAILY metoprolol succinate 100 mg tablet extended release 24 hr 50 mg PO QHS losartan 100 mg tablet 50 mg PO QHS furosemide 40 mg tablet 40 mg PO DAILY Lactobacillus acidophilus 100 mg (1 billion cell) capsule 100 mmu cells PO DAILY fish,bora,flax oils-om3,6,9no1 1,200 mg capsule 2 cap PO BID Azo Cranberry 250 mg tablet,chewable 500 mg PO QHS lorazepam 1 mg tablet 1 mg PO BID glimepiride 4 MG tablet 4 mg PO BID metformin 500 MG tablet 1,000 mg PO BID Zyrtec 10 MG capsule 20 mg PO DAILY aspirin 81 mg tablet,delayed release (DR/EC) 243 mg PO QHS naproxen 500 mg tablet 500 mg PO QHS atorvastatin [Lipitor] 40 mg Tablet 40 mg PO QHS pantoprazole [Protonix] 20 mg Tablet,Delayed Release (Dr/Ec) 20 mg PO DAILY insulin aspart U-100 [Novolog FlexPen U-100 Insulin] 100 unit/mL (3 mL) Insulin Pen 30 unit SUBCUT TID gabapentin 300 mg Tablet 900 mg PO QHS insulin degludec [Tresiba FlexTouch U-200] 200 unit/mL (3 mL) Insulin Pen 130 unit SUBCUT QHS Trulicity 4.5 mg/0.5 mL Pen Injector 4.5 mg SUBCUT NEGRETE Rx Instructions: SUNDAYS gabapentin 300 mg tablet 600 mg PO DAILY losartan 100 mg tablet 100 mg PO DAILY sulfamethoxazole-trimethoprim 400-80 mg tablet 1 tab PO DAILY Referrals / Follow Up: Jason Moffett DO [Primary Care Provider] - Disposition Disposition (needs filled in before D/C Order can be placed): Home, Self Care Charges/Coding Visit Charges Inpatient E&M: 21775 Disch Hosp >30min
[2023-12-12] MEDS: Ceftriaxone 1 GM/50 ML BAG IV (11:07)
[2023-12-12 11:51] LABS: Bedside Glucose 163 mg/dL (74-106)
== END 2023-12-12 13:30 | disposition home or self-care (01) | DRG 191 ==
LOC: ED 12-11 00:14 → MS3 12-11 00:25
PROVIDERS: Physician Assistant; Admitting Provider Family Medicine; Emergency Provider Emergency Medicine; PCP Student in an Organized Health Care Education/Training Program; Visit Provider Hospitalist
DX: J44.1 Chronic obstructive pulmonary disease with (acute) exacerbation (principal); I13.0 Hypertensive heart and chronic kidney disease with heart failure and stage 1 through stage 4 chronic kidney disease, or unspecified chronic kidney disease; Z68.44 Body mass index [BMI] 60.0-69.9, adult; I50.32 Chronic diastolic (congestive) heart failure; E11.22 Type 2 diabetes mellitus with diabetic chronic kidney disease; E11.40 Type 2 diabetes mellitus with diabetic neuropathy, unspecified; D64.9 Anemia, unspecified; N18.30 Chronic kidney disease, stage 3 unspecified; E66.01 Morbid (severe) obesity due to excess calories; Z79.4 Long term (current) use of insulin; E78.5 Hyperlipidemia, unspecified; J06.9 Acute upper respiratory infection, unspecified; J30.9 Allergic rhinitis, unspecified; K21.9 Gastro-esophageal reflux disease without esophagitis; I25.10 Atherosclerotic heart disease of native coronary artery without angina pectoris; G47.33 Obstructive sleep apnea (adult) (pediatric); F41.8 Other specified anxiety disorders; Z87.891 Personal history of nicotine dependence; Z79.82 Long term (current) use of aspirin; R53.81 Other malaise; R53.1 Weakness; Z86.73 Personal history of transient ischemic attack (TIA), and cerebral infarction without residual deficits; Z99.89 Dependence on other enabling machines and devices; Z79.84 Long term (current) use of oral hypoglycemic drugs; Z79.899 Other long term (current) drug therapy; Z79.85 Long-term (current) use of injectable non-insulin antidiabetic drugs
CPT/HCPCS: 36415; 71046; 80048; 80053; 82962; 83605; 84145; 85025; 87070; 87205; 87631; 87633; 94640; 94668; 97162; 97166; 99252; 99284; J7030; J7040; A4216; G0463; J2405